=== PATIENT | male | born 1955 | race Caucasian/White ===

== ENCOUNTER 2020-02-03 13:06 | Outpatient (CLI) | payer OTHER, SELFPAY ==
[2020-02-03 13:25] LABS: Basophils Percent Auto 0.3 % (0.2-1.2); Eosinophils Absolute Auto 0.2 K/mm3 (0-0.3); Eosinophils Percent Auto 1.5 % (0-4.4); Hematocrit 51.1 % (42.0-52.0); Hemoglobin 16.5 g/dL (14.0-18.0); Immature Granulocyte Absolute 0.05 K/mm3 (0.00-0.031); Immature Granulocyte Percent A 0.5 % (0-0.5); Lymphocytes Absolute Auto 2.03 K/mm3 (0.9-3.2); Lymphocytes Percent Auto 20.8 % (18.3-44.2); Mean Corpuscular HGB Conc 32.3 g/dl (32-36); Mean Corpuscular Hemoglobin 26.9 pg (26-34); Mean Corpuscular Volume 83.4 fl (80-100); Monocytes Percent Auto 10.6 % (2.6-8.5); Neutrophils Absolute Auto 6.5 K/mm3 (1.3-6.7); Neutrophils Percent Auto 66.3 % (45.5-73.1); Platelet Count Result 184 k/mm3 (150-375); Red Blood Count 6.13 M/mm3 (4.6-6.20); Red Cell Distribution Width 14.1 % (11.5-14.5); White Blood Count 9.8 K/mm3 (4.5-10.0)
[2020-02-03 13:29] LABS: Blood Urea Nitrogen 18 mg/dL (8-26); Carbon Dioxide 28 mmol/L (22-30); Chloride 100 mmol/L (98-109); Estimated Glomerular Filt Rate > 60; Glucose 90 mg/dL (70-105); Potassium 3.9 mmol/L (3.5-4.9); Sodium 139 mmol/L (138-146)
== END 2020-02-03 13:07 | disposition home or self-care (01) ==
PROVIDERS: PCP Family Medicine; Visit Provider Internal Medicine Hematology & Oncology
DX: D75.1 Secondary polycythemia (principal)
CPT/HCPCS: 36415; 80048; 85025

== ENCOUNTER 2021-12-01 10:27 | Outpatient (CLI) | payer MEDICARE, SELFPAY ==
[2021-12-01 10:57] LABS: Basophils Percent Auto 0.4 % (0.2-1.2); Eosinophils Absolute Auto 0.2 K/mm3 (0-0.3); Eosinophils Percent Auto 2.1 % (0-4.4); Hematocrit 51.4 % (42.0-52.0); Immature Granulocyte Absolute 0.03 K/mm3 (0.00-0.031); Immature Granulocyte Percent A 0.4 % (0-0.5); Lymphocytes Absolute Auto 1.97 K/mm3 (0.9-3.2); Lymphocytes Percent Auto 25.8 % (18.3-44.2); Mean Corpuscular HGB Conc 33.1 g/dl (32-36); Mean Corpuscular Hemoglobin 29.4 pg (26-34); Mean Corpuscular Volume 88.9 fl (80-100); Mean Platelet Volume 10.5 fl (7.4-10.4); Monocytes Absolute Auto 0.8 K/mm3 (0.1-0.6); Neutrophils Absolute Auto 4.6 K/mm3 (1.3-6.7); Neutrophils Percent Auto 60.3 % (45.5-73.1); Platelet Count Result 149 k/mm3 (150-375); Red Blood Count 5.78 M/mm3 (4.6-6.20); White Blood Count 7.6 K/mm3 (4.5-10.0)
[2021-12-01 11:01] LABS: Blood Urea Nitrogen 17 mg/dL (8-26); Carbon Dioxide 29 mmol/L (22-30); Chloride 101 mmol/L (98-109); Estimated Glomerular Filt Rate > 60; Glucose 105 mg/dL (70-105); Ionized Calcium (POC) 1.21 mmol/L (1.11-1.31); Potassium 4.7 mmol/L (3.5-4.9); Sodium 140 mmol/L (138-146)
== END 2021-12-01 10:28 | disposition home or self-care (01) ==
LOC: ANHLAB 10:29
PROVIDERS: PCP Family Medicine; Visit Provider Internal Medicine Hematology & Oncology
DX: D75.1 Secondary polycythemia (principal)
CPT/HCPCS: 36415; 80047; 85025

== ENCOUNTER 2022-10-01 12:31 | Outpatient (CLI) | payer MEDICARE, SELFPAY ==
--- NOTE | ~2022-10-01 | MR_ITS ---
EXAMINATION: MR shoulder LT wo/w con DATE: 10/01/2022 13:59 INDICATION: Left scapular mass. TECHNIQUE: Magnetic resonance imaging (MRI) of the left shoulder was performed without and with 20 mL MultiHance intravenous contrast. COMPARISON: None. FINDINGS: At the posterior aspect of the left scapula, there is a 9.5 x 6.2 x 5.9 cm mass that is predominantly fat. There are streaky areas of increased T1-weighted signal intensity within the mass. No contrast enhancement. There are spikes of calcification extending from the posterior surface of the scapular c ortex into the mass. There is no continuity with the scapular medullary space. IMPRESSION: 1. 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 Reviewed, dictated and finalized at location A. IMPRESSION: 1. 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
== END 2022-10-01 12:32 | disposition home or self-care (01) ==
PROVIDERS: PCP Family Medicine; Visit Provider Physician Assistant
DX: R22.32 Localized swelling, mass and lump, left upper limb (principal)
CPT/HCPCS: 36415; 73223; 80047; 80053; 82465; 84153; 85025; A9577; G0103

== ENCOUNTER 2023-10-18 10:52 | Outpatient (CLI) | payer MEDICARE, SELFPAY ==
[2023-10-18 11:20] LABS: Basophils Percent Auto 0.4 % (0.2-1.2); Eosinophils Absolute Auto 0.2 K/mm3 (0-0.3); Eosinophils Percent Auto 2.4 % (0-4.4); Hematocrit 48.5 % (42.0-52.0); Hemoglobin 16.5 g/dL (14.0-18.0); Immature Granulocyte Absolute 0.05 K/mm3 (0.00-0.031); Immature Granulocyte Percent A 0.7 % (0-0.5); Immature Platelet Fraction Pct 5.4 % (0.9-11.2); Lymphocytes Absolute Auto 1.52 K/mm3 (0.9-3.2); Lymphocytes Percent Auto 22.6 % (18.3-44.2); Mean Corpuscular Hemoglobin 29.2 pg (26-34); Mean Corpuscular Volume 85.8 fl (80-100); Mean Platelet Volume 10.1 fl (7.4-10.4); Monocytes Absolute Auto 0.8 K/mm3 (0.1-0.6); Monocytes Percent Auto 11.2 % (2.6-8.5); Neutrophils Absolute Auto 4.2 K/mm3 (1.3-6.7); Neutrophils Percent Auto 62.7 % (45.5-73.1); Platelet Count Result 149 k/mm3 (150-375); Red Blood Count 5.65 M/mm3 (4.6-6.20); Red Cell Distribution Width 13.3 % (11.5-14.5); White Blood Count 6.7 K/mm3 (4.5-10.0)
[2023-10-18 11:21] LABS: Blood Urea Nitrogen 18 mg/dL (8-26); Carbon Dioxide 27 mmol/L (22-30); Chloride 100 mmol/L (98-109); Estimated Glomerular Filt Rate > 60; Glucose 112 mg/dL (70-105); Ionized Calcium (POC) 1.21 mmol/L (1.11-1.31); Potassium 4.3 mmol/L (3.5-4.9); Sodium 139 mmol/L (138-146)
[2023-10-18 12:09] LABS: Alanine Aminotransferase 40 U/L (6-50); Albumin Level 4.2 g/dL (3.5-5.1); Alkaline Phosphatase 100 U/L (38-126); Anion Gap 3 mmol/L (4-12); Aspartate Amino Transferase 39 U/L (17-59); Bilirubin,Total 0.5 mg/dL (0.2-1.3); Blood Urea Nitrogen 19 mg/dL (9-20); Calcium 9.2 mg/dL (8.4-10.2); Carbon Dioxide 31 mmol/L (22-30); Chloride 102 mmol/L (98-107); Estimated Glomerular Filt Rate > 60; Glucose 109 mg/dL (65-110); Potassium 4.4 mmol/L (3.4-5.0); Sodium 136 mmol/L (137-145)
== END 2023-10-18 10:53 | disposition home or self-care (01) ==
LOC: ANHLAB 10:53
PROVIDERS: PCP Family Medicine; Visit Provider Internal Medicine Hematology & Oncology
DX: D75.1 Secondary polycythemia (principal)
CPT/HCPCS: 36415; 80047; 80053; 85025; 85055

== ENCOUNTER 2024-10-29 12:42 | Outpatient (CLI) | payer MEDICARE, SELFPAY ==
--- OUTSIDE RECORDS SUMMARY | 2024-10-29 12:48 | XMS_ITS | Clinical Summary ---
Author Organization [facility] [address] Address [address] [place] [address] Care Team Providers Care Quiller Runner Name Role Phone Hien Faustin MD Primary Care Provider [phone] Danna Kim MD Unavailable [phone] Allergies Active Allergy Reactions Criticality Noted Date Comments Codeine Headache Low 10/24/2023 Medications aspirin 81 mg chewable tablet Take 1 tablet (81 mg total) by mouth daily Active nitroglycerin (NITROSTAT) 0.[address] 1 tablet (0.4 mg total) under the tongue every 5 (five) minutes as needed for chest pain Active quinapriL (ACCUPRIL) 40 mg tablet Take 1 tablet (40 mg total) by mouth 2 (two) times a day Active rosuvastatin (CRESTOR) 40 mg tablet Take 1 tablet (40 mg total) by mouth nightly Active metoprolol XL (TOPROL-XL) 100 mg 24 hr tablet Take 1 tablet (100 mg total) by mouth daily Active hydroCHLOROthia zide (HYDRODIURIL) 50 mg tablet Take 1 tablet (50 mg total) by mouth daily Active ezetimibe (ZETIA) 10 mg tablet Take 1 tablet (10 mg total) by mouth daily 4 Active amLODIPine (NORVASC) 10 mg tablet Take 1 tablet (10 mg total) by mouth daily 30 tablet 4 Active ticagrelor (BRILINTA) 90 mg tabletIndicatio ns:cardiovascul ar disease Take 1 tablet (90 mg total) by mouth 2 (two) times a day 60 tablet 11 4 Active brimonidine (ALPHAGAN) 0.2 % ophthalmic solution Administer 1 drop into both eyes 3 (three) times a day 5 mL 5 Active cyclopentolate (CYCLOGYL) 1 % ophthalmic solution Administer 1 drop into the left eye 2 (two) times a day 10 mL 5 Active prednisoLONE acetate (PRED FORTE) 1 % ophthalmic suspension Administer 1 drop into the left eye 2 (two) times a day 5 mL 5 Active dorzolamide-bj oloL (COSOPT) 22.3-6.8 mg/mL ophthalmic solution Administer 1 drop into both eyes 2 (two) times a day 10 mL 5 Active latanoprost (XALATAN) 0.005 % ophthalmic solution Administer 1 drop into both eyes nightly 2.5 mL 5 Active Active Problems Problem Noted Date Diagnosed Date 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 NSTEMI (non-ST elevated myocardial infarction) 0 10/24/2023 Primary hypertension 10/24/2023 Hyperlipidemia 10/24/2023 Type 2 diabetes mellitus wit hout complication, without long-term current use of insulin 10/24/2023 Class 1 obesity due to exces s calories without serious comorbidity with body mass index (BMI) of 32.0 to 32.9 in adult 10/24/2023 NSTEMI (non-ST elevated myocardial infarction) 0 12/07/2021 Other secondary thrombocytopenia 11/05/2018 Encounters Date Type Department Care Team Description 10/27/2024 3:14 PM CDT - 10/27/2024 8:14 PM CDT Emergency [facility] [address] [place] [address] Maeve Fuentes MD Traumatic iritis (Primary Dx); Acute pain of right knee; Fall from ladder, initial encounter; Effusion, right knee; Traumatic hemarthrosis of right knee; Open-angle glaucoma of both eyes, unspecified glaucoma stage, unspecified open-angle glaucoma type Discharge Disposition: Discharge to home or self care 10/27/2024 Telephone Ophthalmology Anusha Castaneda MD 10/27/2024 Ophth Exam Ophthalmology Anusha Castaneda MD from Last 3 Months Surgical History Surgery Date Site/Laterality Comments CARDIAC CATHETERIZATION CORONARY ANGIOPLASTY Medical History Medical History Date Comments Hypertension Hyperlipidemia Coronary artery disease Family History Medical History Relation Name Comments Hyperlipidemia Mother Relation Name Status Comments Mother Social History Tobacco Use Types Packs/Day Years Used Date Smoking Tobacco: Never Smokeless Tobacco: Never [facility] Utilities Answer Date Recorded In the past 12 months has [employer] gas, oil, or water [employer] threatened to shut off services in your home? No 10/24/2023 Social Connection and Isolation Panel Answer Date Recorded In a typical week, how many times do you talk on the phone with family, friends, or neighbors? More than three times a week 10/24/2023 How often do you get togethe r with friends or relatives? More than three times a week 10/24/2023 How often do you attend chur ch or jewish services? 1 to 4 times per year 10/24/2023 Do you belong to any clubs o r organizations such as taoist groups, unions, fraternal or athletic groups, or school groups? No 10/24/2023 How often do you attend meet ings of the clubs or organizations you belong to? Never 10/24/2023 Are you , , di vorced, , never , or living with a partner? 10/24/2023 AUDIT-C Answer Date Recorded Q1: How often do you have a drink containing alc ohol? Monthly or less 10/25/2023 Q2: How many drinks containi ng alcohol do you have on a typical day when you are drinking? 1 or 2 10/25/2023 Q3: How often do you have si x or more drinks on one occasion? Never 10/25/2023 Overall Financial Resource Strain (CARDIA) Answe r Date Recorded How hard is it for you to pa y for the very basics like food, housing, medical care, and heating? Not hard at all 10/24/2023 Hunger Vital Sign Answer Date Recorded Within the past 12 months, y ou worried that your food would run out before you got the money to buy more. Never true 10/24/19 24 Within the past 12 months, t he food you bought just didn't last and you didn't have money to get more. Never true 10/24/2023 PRAPARE - Transportation Answer Date Re corded In the past 12 months, has l ack of transportation kept you from medical appointments or from getting medications? No 10/2023 In the past 12 months, has l ack of transportation kept you from meetings, work, or from getting things needed for daily living? No 10/24/2023 Housing Stability Vital Sign Answer Herman e Recorded In the last 12 months, was t here a time when you were not able to pay the mortgage or rent on time? No 10/24/2023 In the past 12 months, how m any times have you moved where you were living? 0 10/24/2023 At any time in the past 12 m [facility], were you homeless or living in a custodial (including now)? No 10/24/2023 Personal Safety Answer Date Recorded Have you ever been in or are you currently in a harmful physical or emotional relationship or is someone making you feel afraid or unsafe? Denies 10/27/2024 Sex and Gender Information Value Date Recorded Sex Assigned at Not on file Legal Sex Male 10:13 AM [employer] Gender Identity Not on file Sexual Orientation Not on file Obstetrics History Last Filed Vital Signs Vital Sign Reading Time Taken Comments Blood Pressure 140/105 10/27/2024 5:45 PM CDT Pulse 85 10/27/2024 5:45 PM CDT Temperature 36.7 C (98 F) 10/27/2024 3:27 PM CDT Respiratory Rate 16 10/27/2024 5:15 PM CDT Oxygen Saturation 96% 10/27/2024 5:15 PM CDT Inhaled Oxygen Concentration - - Weight 106.6 kg (235 lb) 10/27/2024 3:27 PM CDT Height 182.9 cm (6') 10/27/2024 3:27 PM CDT Body Mass Index 31.87 10/27/2024 3:27 PM CDT Plan of Treatment Health Maintenance Due Date Last Done Comments Albumin Creatinine Ratio, Urine 1955 Colon Cancer Screening-Colonoscopy 1955 Depression Screening 1955 Hepatitis C Screening 1955 Prostate Cancer Screening-PSA 1955 Foot Exam 1955 Hepatitis B Screening 11/24/1973 Pneumococcal vaccine 65+ (1 of 2 - PCV) 11/24/1974 Zoster Vaccine (1 of 2) 11/24/2005 Abdominal Aortic Aneurysm (A AA) Screen 11/24/2020 04/19/2017 Well Visit 65+ 11/24/2020 Hemoglobin A1C 04/25/2024 10/24/2023 Lipid Panel 10/23/2024 10/24/2023, 10/23/2023 Fall Risk Assessment 10/25/2024 10/26/2023 Influenza Vaccine (#1) 2024 Dilated Eye Exam 10/27/2025 10/27/2024 eGFR 10/27/2025 10/27/2024, 10/16, 10/25/2023, Additional history exists DTaP/Tdap/Td Vaccine (3 - Td or Tdap) 02/03/2030 02/04/2020, 03/19/2007 Medical Devices Implanted Type Area Client Integration Manager Device Identifier Shelf Expiration Date Model / Serial / Lot Medtronic Card Vasc Surgery 3.5 X 12mm [place] [employer] Coronary Stent [id number] - [id number] Implanted:Qty: 1 on 10/25/2023 by David Marrero MD at [facility] Med[employer]onic Card Vasc Surgery 12/18/2025 [id number] / / [id number] Procedures Procedure Name Priority Date/Time Associated Diagnosis Comments EGFR STAT 10/27/2024 3:31 PM CDT DIFFERENTIAL AUTO STAT 10/27/2024 3:3 1 PM CDT COMPREHENSIVE METABOLIC PANEL STAT 10/27/2024 3:31 PM CDT CBC WITH AUTO DIFFERENTIAL STAT 10/27/2024 3:31 PM CDT HEMOGLOBIN A1C Routine 10/24/2023 4:17 AM CDT LIPID PANEL Routine 10/24/2023 4:17 AM CDT from Last 3 Months or Most Recently Relevant to Health Maintenance Results * eGFR (10/27/2024 3:31 PM CDT) Pathologist [facility] eGFR >90 >=60 mL/min/1. 73 m2 Comment: Interpretive Data Reference Interval Normal >/= 90 mL/min/1.73m2 Mildly decreased* 60 - 89 mL/min/1.73m2 Mildly to moderately decreased 45 - 59 mL/min/1.73m2 Moderately to severely decreased 30 - 44 mL/min/1.73m2 Severely decreased 15 - 29 mL/min/1.73m2 Kidney Failure < 15 mL/min/1.73m2 *Relative to young adult level Estimated glomerular filtration rate is determined by the 2020 CKD-EPI equation recommended by the National Kidney Foundation (A Unifying Approach to GFR Estimation: Recommendations of the NKF-ASK Task Force on Reassessing the Inclusion of Race in Diagnosing Kidney Disease, JASN 2020). The CKD-EPI equation should not be used for patients with unstable renal function and has not been validated in children and those over 70. Current interpretive data was last reviewed 2021. Blood 10/27/2024 3:31 PM CDT 10/27/2024 3:56 PM CDT Juan Jamison MD LAB BLOOD ORDERABLES Fi nal Result [facility] Department [place] [address] * (ABNORMAL) Differential, auto (10/27/2024 3:31 PM CDT) Pathologist [facility] Neutrophil abs 11.85(H) 1.50 - 6.50 K/cumm Imm gran abs 0.09 0.00 - 0.10 K/cumm [facility] Lymphocyte abs 1.49 0.80 - 3.30 K/cumm [facility] Monocyte abs 1.03(H) 0.20 - 0.80 K/cumm [facility] Eosinophil abs 0.03 0.00 - 0.50 K/cumm [facility] Basophil abs 0.03 0.00 - 0.10 K/cumm [facility] Neutrophil pct 81.6 % [facility] Comment: Interpretive Data Percent cell count reference ranges are not reported, since discordance with absolute values may lead to misinterpretation of CBC data. Current Interpretive Data was last revised on 2017. Imm gran pct 0.6 % [facility] Comment: Interpretive Data Percent cell count reference ranges are not reported, since discordance with absolute values may lead to misinterpretation of CBC data. Current Interpretive Data was last revised on 2017. Lymphocyte pct 10.3 % [facility] Comment: Interpretive Data Percent cell count reference ranges are not reported, since discordance with absolute values may lead to misinterpretation of CBC data. Current Interpretive Data was last revised on 2017. Monocyte pct 7.1 % [facility] Comment: Interpretive Data Percent cell count reference ranges are not reported, since discordance with absolute values may lead to misinterpretation of CBC data. Current Interpretive Data was last revised on 2017. Eosinophil pct 0.2 % [facility] Comment: Interpretive Data Percent cell count reference ranges are not reported, since discordance with absolute values may lead to misinterpretation of CBC data. Current Interpretive Data was last revised on 2017. Basophil pct 0.2 % [facility] Comment: Interpretive Data Percent cell count reference ranges are not reported, since discordance with absolute values may lead to misinterpretation of CBC data. Current Interpretive Data was last revised on 2017. Blood 10/27/2024 3:31 PM CDT 10/27/2024 3:56 PM CDT us Juan Jamison MD LAB BLOOD ORDERABLES Fi nal Result [facility] [place] [address] * (ABNORMAL) CBC with auto differential (10/27/2024 3:31 PM CDT) WBC 14.52(H) 3.80 - 9.90 K/cumm Hgb 14.4 13.0 - 17.5 g/dL [facility] Hct 42.8 38.9 - 50.3 % [facility] Plt 172 150 - 400 K/cumm [facility] MPV 10.6 9.1 - 12.3 fL [facility] RBC 5.01 4.30 - 5.80 M/cumm [facility] MCV 85.4 81.3 - 96.4 fL [facility] MCH 28.7 27.1 - 33.3 pg [facility] MCHC 33.6 32.3 - 35.7 g/dL [facility] RDW CV 13.2 11.1 - 14.9 % [facility] RDW SD 41.1 35.7 - 48.1 fL [facility] NRBC abs 0.00 0.00 - 0.01 K/cumm [facility] Blood 10/27/2024 3:31 PM CDT 10/27/2024 3:56 PM CDT us Juan Jamison MD LAB BLOOD ORDERABLES [facility] Result [facility] Department [place] [address] * Comprehensive metabolic panel (10/27/2024 3:31 PM CDT) Sodium 139 135 - 145 mmol/L Potassium, pl 3.8 3.3 - 4.9 mmol/L [facility] Chloride 101 97 - 110 mmol/L [facility] CO2 25 22 - 32 mmol/L [facility] Anion gap 13 2 - 15 mmol/L [facility] BUN 21 6 - 25 mg/dL [facility] Creatinine 0.81 0.80 - 1.30 mg/dL [facility] Glucose 106 70 - 199 mg/dL [facility] Comment: Interpretive Data Fasting glucose >/= 126 mg/dl is diagnostic for diabetes. Fasting is defined as no caloric intake for at least 8 hours. Fasting glucose between 100 mg/dl to 125 mg/dl is diagnostic of prediabetes. In a patient with classic symptoms of hyperglycemia or hyperglycemic crisis, a random glucose >/= 200 mg/dl is diagnostic for diabetes. In the absence of unequivocal hyperglycemia, results should be confirmed by repeat testing. The classification and Diagnosis of Diabetes Diabetes Care 202; 46: S19-S40. Current interpretive data was last revised 2022. Calcium 9.3 8.5 - 10.3 mg/dL [facility] Bilirubin, total 0.5 0.1 - 1.2 mg/dL [facility] Protein, pl 7.2 6.5 - 8.5 g/dL [facility] Albumin 4.1 3.5 - 5.0 g/dL [facility] Alk phos 79 40 - 130 Units/L [facility] ALT 49 7 - 55 Units/L [facility] AST 49 10 - 50 Units/L [facility] Blood 10/27/2024 3:31 PM CDT 10/27/2024 3:56 PM CDT us Juan Jamison MD LAB BLOOD ORDERABLES Fi nal Result Performing Organization Address City/[facility] [address]/ZIP Co de Phone Number [facility] Department [place] [address] * (ABNORMAL) Hemoglobin A1c (10/24/2023 4:17 AM CDT) Hgb A1C 6.8(H) 4.0 - 5.6 % Estimated Average Glucose 148 mg/dL [facility] Comment: The ADA recommends reporting an estimated Average Glucose (eAG) with all Hemoglobin A1c results using the equation derived from a study of 507 normal and diabetic adults. Minority populations were underrepresented and children were not included. (Diabetes Care 31:4835-7092, 2008). The eAG is not equivalent to a fasting glucose. Blood 10/24/2023 4:17 AM CDT 10/24/2023 4:20 AM CDT us Alana Madera MD LAB BLOOD ORDERABLES Final Result [facility] [address] [facility] Department [place] [address] * (ABNORMAL) Lipid panel (10/24/2023 4:17 AM CDT) Cholesterol 205(H) 30 - 199 mg/dL Comment: Interpretive Data Ages < or = 19 years Acceptable: <170 mg/dL Borderline high: 170-199 mg/dL High: >or= 200 mg/dL Ages > or = 20 years Desirable: <200 mg/dL Borderline high: 200-239 mg/dL High: >or= 240 mg/dL Literature References: 1. Expert Panel on Integrated Guidelines for Cardiovascular Health and Risk Reduction in Children and Adolescents. Pediatrics 2011;128:S213 2. NCEP Expert Panel. Circulation 2004;110:227 Current Interpretive Data was last revised on 2017. Triglycerides 358(H) <=149 mg/dL [facility] Comment: Interpretive Data Ages < or = 9 years Acceptable: <75 mg/dL Borderline high: 75-99 mg/dL High: >or= 100 mg/dL Ages 10 to 20 years Acceptable: <90 mg/dL Borderline high: 90-129 mg/dL High: >or= 130 mg/dL Ages > or = 20 years Desirable: <150 mg/dL Borderline high: 150-199 mg/dL High: 200-499 mg/dL Very high: >or= 499 mg/dL Literature References: 1. Expert Panel on Integrated Guidelines for Cardiovascular Health and Risk Reduction in Children and Adolescents. Pediatrics 2011;128:S213 2. NCEP Expert Panel. Circulation 2003;110:227 Current Interpretive Data was last revised on 2017. HDL 36(L) >=40 mg/dL [facility] Comment: Interpretive Data Ages < or = 19 years Acceptable: >45 mg/dL Borderline low: 40-45 mg/dL Low: <40 mg/dL Ages > or = 20 years Desirable: >or= 60 mg/dL Low: <40 mg/dL Literature References: 1. Expert Panel on Integrated Guidelines for Cardiovascular Health and Risk Reduction in Children and Adolescents. Pediatrics 2011;128:S213 2. NCEP Expert Panel. Circulation 2004;110:227 Current Interpretive Data was last revised on 2017. LDL, calculated 97 <=129 mg/dL [facility] Comment: Interpretive Data Ages < or = 19 years Acceptable: <110 mg/dL Borderline high: 110-129 mg/dL High: >or= 130 mg/dL Ages > or = 20 years Optimal: <100 mg/dL Near optimal: 100-129 mg/dL Borderline high: 130-159 mg/dL High: >160 mg/dL Literature References: 1. Expert Panel on Integrated Guidelines for Cardiovascular Health and Risk Reduction in Children and Adolescents. Pediatrics 2011;128:S213 2. NCEP Expert Panel. Circulation 2004;110:227 Current Interpretive Data was last revised on 2017. Non-HDL Cholesterol 169 mg/dL [facility] Comment: Interpretive Data Ages < or = 19 years Acceptable: <120 mg/dL Borderline high: 120-144 mg/dL High: >145 mg/dL Ages > or = 20 years When triglycerides are >200 mg/dL, Non-HDL cholesterol is a secondary target of therapy with treatment goals that are 30 mg/dL greater than the LDL cholesterol target. Literature References: 1. Expert Panel on Integrated Guidelines for Cardiovascular Health and Risk Reduction in Children and Adolescents. Pediatrics 2011;128:S213 2. NCEP Expert Panel. Circulation 2004;110:227 Current Interpretive Data was last revised on 2017. Chol/HDL ratio 6 [facility] Blood 10/24/2023 4:17 AM CDT 10/24/2023 4:20 AM CDT Alana Madera MD LAB BLOOD ORDERABLES Final Result [facility] [address] [facility] Department [place] [address] from Last 3 Months or Most Recently Relevant to Health Maintenance Insurance MEDICARE UHC MEDICARE ADVANTAGE [facility] MEDICARE ADVANTAGE Advance Directives For more information, please contact: [phone] * Full Code (Latest Code Status on File) Date Activated Date Inactivated Comments 10/25/2023 10:49 AM 10/26/2023 5:48 PM * Full Code Date Activated Date Inactivated Comments 10/24/2023 12:45 AM 10/25/2023 10:49 AM Care Teams Quiller Runner Relationship Specialty Start Date End Date Hien Faustin MD PCP - General Family Medicine 11/22/21 Danna Kim MD Family Practice 11/22/21
--- OUTSIDE RECORDS SUMMARY | 2024-10-29 12:48 | XMS_ITS | Encounter Summary ---
Author Organization [facility] Healthcare Address [address] [facility] [place] [address] Care Team Providers Care Greenhouse Technician Name Role Phone Hien Faustin MD Primary Care Provider [phone] Danna Kim MD Unavailable [phone] Reason for Visit * Reason Comments Fall Encounter Details Date Type Department Care Team (Late st Contact Info) Description 10/27/2024 3:14 PM CDT - 10/27/2024 8:14 PM CDT Emergency [facility] Emergency Department [address] [place] [id number] Maeve Fuentes MD [address] [place] [address] Traumatic iritis (Primary Dx); Acute pain of right knee; Fall from ladder, initial encounter; Effusion, right knee; Traumatic hemarthrosis of right knee; Open-angle glaucoma of both eyes, unspecified glaucoma stage, unspecified open-angle glaucoma type Discharge Disposition: Discharge to home or self care Social History Tobacco Use Types Packs/Day Years Used Date Smoking Tobacco: Never Smokeless Tobacco: Never C Utilities Answer Date Recorded In the past 12 months has [employer], gas, oil, or water company threatened to shut off services in your [...] often do you attend chur ch or uatsdin services? 1 to 4 times per year 10/24/2023 Do you belong to any clubs o r organizations such as mormonism groups, unions, fraternal or athletic groups, or [...] any time in the past [address] [facility], were you homeless or living in a [facility] (including now)? No 10/24/2023 Personal Safety Answer Date Recorded Have you ever been in or are you currently in a harmful physical or emotional relationship or is someone making you feel afraid or unsafe? Denies 10/27/2024 Sex and Gender Information Value Date Recorded Sex Assigned at Not on file Legal Sex Male 10:13 AM [employer] Gender Identity Not on file Sexual Orientation Not on file documented as of this encounter Last Filed Vital Signs Vital Sign Reading [...] Mass Index 31.87 10/27/2024 3:27 PM CDT documented in this encounter Discharge Instructions * Discharge Instructions* Juan Jamison MD - 10/27/2024 6:27 PM CDT You were seen in the emergency department of [facility] for left eye blurry vision and right knee pain after falling from an onto a ladder. Outside hospital imaging not reveal any fractures. Your right knee pain is likely due to bleeding into the joint which should resolve over the nextseveral days. You were evaluated by the ophthalmology team. The trauma to your face was caused irrit ation to your iris. The pressures inside your eyes are also elevated which is likely due to glaucoma. You are being given a number of eyedrops listed below. - Start Prednisolone forte 1-2 drops twice per day in the LEFT EYE ONLY - Start Cyclopentolate 1-2 drips twice per day in the LEFT EYE ONLY - Start Timolol drops twice per day 1 drop in both eyes. - Start Dorzolamide one drop in each eye twice per day - Start brimonidine one drop in each eye twice perday. - Start latanoprost one drop every night in each eye - Wait 3-5 minutes between each drop before administering next drop When you sleep it is recommend you elevate you head. Avoid heavy lifting or straining. The ophthalmology clinic, [facility] ([facility]), would like to follow up with the you in 1 week. Call the [facility] ([facility]) clinic at [phone] if you experience any new vision changes, new flashes/floaters, eye pain, diplopia, or any other concerning ocular changes. Please take Tylenol (acetaminophen) 1000 mg up to every 6 hours as needed for the next 3 days, and while you are having a significant amount of pain. If needed, you can also take ibuprofen 600 mg every 6 hours, or naproxen (Aleve) as indicated on the label, in addition to the acetaminophen as needed. It is okay to use heat, cold, and topical therapies like lidocaine, icy hot, or other [id number] gels where you are having pain. If you use heat or cold, be sure to put a washcloth or other fabric between the hot/cold pack and your skin to prevent ya. Return to an emergency department if you have worsening vision loss, severe sudden onset headache, if your right knee pain does not resolve, he will become unable to ambulate with crutches, or any other distressing symptoms. documented in this encounter Medications at Time of Discharge aspirin 81 mg chewable tablet Take 1 tablet (81 mg total) by mouth daily brimonidine (ALPHAGAN) 0.2 % ophthalmic solution Administer 1 drop into both eyes 3 (three) times a day 5 mL 10/27/2024 cyclopentolate (CYCLOGYL) 1 % ophthalmic solution Administer 1 drop into the left eye 2 (two) times a day 10 mL 10/27/2024 dorzolamide-jazzy loL (COSOPT) 22.3-6.8 mg/mL ophthalmic solution Administer 1 drop into both eyes 2 (two) times a day 10 mL 10/27/2024 ezetimibe (ZETIA) 10 mg tablet Take 1 tablet (10 mg total) by mouth daily 09/03/2023 hydroCHLOROthiaz brian (HYDRODIURIL) 50 mg tablet Take 1 tablet (50 mg total) by mouth daily latanoprost (XALATAN) 0.005 % ophthalmic solution Administer 1 drop into both eyes nightly 2.5 mL 10/27/2024 metoprolol XL (TOPROL-XL) 100 mg 24 hr tablet Take 1 tablet (100 mg total) by mouth daily nitroglycerin (NITROSTAT) 0.[address] 1 tablet (0.4 mg total) under the tongue every 5 (five) minutes as needed for chest pain prednisoLONE acetate (PRED FORTE) 1 % ophthalmic suspension Administer 1 drop into the left eye 2 (two) times a day 5 mL 10/27/2024 quinapriL (ACCUPRIL) 40 mg tablet Take 1 tablet (40 mg total) by mouth 2 (two) times a day rosuvastatin (CRESTOR) 40 mg tablet Take 1 tablet (40 mg total) by mouth nightly documented as of this encounter Ordered Prescriptions Prescription Sig Dispense Quantity Refills Last Filled Start Date End Date latanoprost (XALATAN) 0.005 % ophthalmic solution Administer 1 drop into both eyes nightly 2.5 mL 10/27/2024 dorzolamide-timolo L (COSOPT) 22.3-6.8 mg/mL ophthalmic solution Administer 1 drop into both eyes 2 (two) times a day 10 mL 10/27/2024 prednisoLONE acetate (PRED FORTE) 1 % ophthalmic suspension Administer 1 drop into the left eye 2 (two) times a day 5 mL 10/27/2024 cyclopentolate (CYCLOGYL) 1 % ophthalmic solution Administer 1 drop into the left eye 2 (two) times a day 10 mL 10/27/2024 brimonidine (ALPHAGAN) 0.2 % ophthalmic solution Administer 1 drop into both eyes 3 (three) times a day 5 mL 10/27/2024 documented in this encounter Discharge Disposition Disposition Code Departure Means Destination Comment s Discharge to home or self care documented in this encounter Consult Notes * Anusha Castaneda MD - 10/27/2024 4:51 PM CDTAssociated Order(s): IP CONSULT TO OPHTHALMOLOGY OPHTHALMOLOGY - NEW CONSULT REPORT Reason for Consult: trauma to L face, blurry vision, conjuctival hemorrhage, L pupil fixed and dilated Admit Date: 10/27/2024 3:14 PM Admit Diagnosis: FALL, LEFT EYE INJURY, RT KNEE SWOLLEN History of Present Illness This is a 68 y.o. male with PMHx of HTN, HLD, NSTEMI, T2DM, Obesity and OHx of ?retinal tear s/p laser who presents after mechanical fall. Ophthalmology is consulted for c/f nonreactive pupil. Patient reports he fell off a ladder today and that it whacked him in the left eye. Reports some initial left eye pain and blurry vision that looked like a haze, which has been improving. He also reports his left eye was crossed in for about 30 seconds which has resolved spontaneously. Having mild photophobia in the left eye with bright lights. Otherwise denies flashes/floaters, eye pain, redness, diplopia. Ocular history: Patient mentions needing a laser in his left eye almost one year ago because something lifted off the back and caused some bleeding. Says the words retinal tear sounds familiar, denies retinal detachment. Past ocular surgeries: Laser as above. Current ocular medications: none Family history of ocular problems: none Review of Systems: Unless noted in HPI all other systems negative. Past Ocular History: see HPI Past Medical History: Diagnosis Date Coronary artery disease Hyperlipidemia Hypertension Past Surgical History: Procedure Laterality Date CARDIAC CATHETERIZATION CORONARY ANGIOPLASTY Family History Problem Relation Age of Onset Hyperlipidemia Mother Social History Tobacco Use Smoking status: Never Smokeless tobacco: Never Substance and Sexual Activity Drug use: Not Currently Sexual activity: Defer Alcohol Use: Not At Risk (10/25/2023) AUDIT-C Frequency of Alcohol Consumption: Monthly or less Average Number of Drinks: 1 or 2 Frequency of Binge Drinking: Never Recent Concern: Alcohol Use - Alcohol Misuse (10/24/2023) AUDIT-C Frequency of Alcohol Consumption: 2-3 times a week Average Number of Drinks: 1 or 2 Frequency of Binge Drinking: Less than monthly Current eye medications: see HPI Current Facility-Administered Medications Medication Dose Route Frequency Provider Last Rate Last Admin acetaminophen (TYLENOL) tablet 1,000 mg 1,000 mg oral Once Juan Jamison MD oxyCODONE (ROXICODONE) tablet 5 mg 5 mg oral Once Juan Jamison MD Current Outpatient Medications Medication Sig Dispense Refill amLODIPine (NORVASC) 10 mg tablet Take 1 tablet (10 mg total) by mouth daily 30 tablet 0 aspirin 81 mg chewable tablet Take 1 tablet (81 mg total) by mouth daily ezetimibe (ZETIA) 10 mg tablet Take 1 tablet (10 mg total) by mouth daily hydroCHLOROthiazide (HYDRODIURIL) 50 mg tablet Take 1 tablet (50 mg total) by mouth daily metoprolol XL (TOPROL-XL) 100 mg 24 hr tablet Take 1 tablet (100 mg total) by mouth daily nitroglycerin (NITROSTAT) 0.[address] 1 tablet (0.4 mg total) under the tongue every 5 (five) minutes as needed for chest pain quinapriL (ACCUPRIL) 40 mg tablet Take 1 tablet (40 mg total) by mouth 2 (two) times a day rosuvastatin (CRESTOR) 40 mg tablet Take 1 tablet (40 mg total) by mouth nightly ticagrelor (BRILINTA) 90 mg tablet Take 1 tablet (90 mg total) by mouth 2 (two) times a day 60 tablet 11 Physical Exam: Vitals: 10/27/24 1745 BP: (!) 140/105 Pulse: 85 Resp: Temp: SpO2: Base Eye Exam Visual Acuity (Snellen - Linear) Right Left Near cc 20/20 20/20 Tonometry (Tonopen, 4:47 PM) Right Left Pressure 34,35,30 46,50,48 Pupils Dark Light Shape React APD Right 6 4 Round Brisk None Left 7 6.5 Round Brisk None Visual Blanco Right Left Restrictions Partial outer superior temporal, superior nasal deficiencies Extraocular Movement Right Left Full Full Dilation Both eyes: 1% Tropicamide, 2.5% Phenylephrine @ 4:51 PM Slit Lamp and Fundus Exam Slit Lamp Exam Right Left Lids/Lashes Normal ecchymosis, lid edema, small superficial abrasion of medial lower lid Conjunctiva/Sclera White and quiet temporal and nasal SG Cornea Clear Clear Anterior Chamber Deep and quiet Deep, 3+ cell and flare Iris Round and reactive Round, minimally reactive, atrophy Lens Clear Clear Anterior Vitreous Moreira ring Normal Fundus Exam Right Left Disc cupped cupped C/D Ratio 0.7 0.7 Macula Normal Normal Vessels Normal Normal Periphery Normal Normal Lab/Radiology/Diagnostic Review: CT Head WO Contrast, CT Facial Bones WO Contrast 10/27/2024 Findings: CT head: Focal soft tissue thickening involving the right parietal scalp as evidence for a hematoma. No subjacent skull fracture. No acute intracranial hemorrhage. There is no extra-axial fluid collection. Preserved rodríguez-white matter differentiation. The ventricles are normal in size. The basal cisterns appear normal. The orbital contents appear normal. Mucous retention cysts involving the inferior portions of the maxillary sinuses bilaterally. Mastoid air cells are well aerated. No acute fracture CT maxillofacial bones: Orbital roof and floor intact bilaterally. Lamina papyracea are intact. Thezygomas are intact. TMJs are well aligned. The mandible is intact. Nasal bones and nasal septum areintact. Multiple dental caries, periodontal lucencies and periapical lucencies indicating the presence of dental and periodontal disease. There is a fractured left first maxillary molar tooth (best seen on series 2 [address] cervical spine: The cervical vertebral bodies and facets are well aligned. The cervical vertebral body heights are preserved. There is intervertebral disc height loss at C5-6 with endplate degenerative change at this level. No acute fracture nor destructive process of the visualized osseous structures. No abnormal prevertebral or paraspinal soft tissue swelling. ASSESSMENT/PLAN AND RECOMMENDATIONS: This is a 68 y.o. male with PMHx of HTN, HLD, NSTEMI, T2DM, Obesity and OHx of ?retinal tear s/p laser who presents after mechanical fall. Ophthalmology is consulted for c/f nonreactive pupil. #Traumatic iritis, OS - Presentation: Patient reports experiencing photophobia and eye pain after falling off ladder and having it hit him in the left eye - Exam significant for dense 3+ AC cell. No hyphema or microhyphema on exam today. No epi defect onfluorescein stain. Dilated fundus exam with no large retinal detachment or tear - Relief of pain following dilating drops indicative that iris / ciliary body spasm is a contributor to ocular pain - Reviewed return precautions for IOP spike and retinal tear, retinal detachment, or vitreous hemorrhage; patient counseled about possibility of a small occult small tear - Discussed increased risk for posterior vitreous detachment, cataract, and glaucoma in the future #Elevated intraocular pressure, OU - Initial IOP elevated to OD 35 and OS 50. After 3 rounds drops, IOP improved to OD 25 and OS 28. Angle open. Also with superior constriction of VF OD and large and cupped-appearing CDRs 0.7 OU, concerning for undiagnosed open-angle glaucoma. - Patient counseled regarding need for IOP-lowering therapy and close follow-up to monitor IOP and obtain ancillary testing. Recommendations - For Traumatic iritis, start in the LEFT EYE ONLY: - Prednisolone forte BID - Cyclopentolate BID - For elevated intraocular pressure, start in BOTH EYES: - Cosopt BID - Brimonidine BID - Latanoprost QHS - Please ensure patient has bottles in hand before discharge - Patient should wait 3-5 minutes between each drop before administering next drop - Elevate head of bed; avoid heavy lifting or straining - Cool compresses to ecchymosis - Patient was advised to call clinic tomorrow to set up appointment in 1 week - If patient experiences any new vision changes, new flashes/floaters, eye pain, diplopia, or any other concerning ocular changes please page on-call ophthalmology resident If patient experiences any new vision changes, new flashes/floaters, eye pain, diplopia, or any other concerning ocular changes please page on-call ophthalmology resident. Ophthalmology outpatient follow-up: 1 week in [facility] ([facility]) clinic. Please leave phone number for clinic ([phone]) in discharge paperwork with instructions to call the clinic to make an appointment. Return precautions: Patient instructed to call [facility] ([facility]) clinic at [phone] they experience any new vision changes, new flashes/floaters, eye pain, diplopia, or any other concerning ocular changes. Anusha Castaneda MD 10/27/2024 6:24 PM Ophthalmology Resident PGY-2 Please page the ophthalmology resident on-call via [facility] with any questions. This consult is NOT complete without attending attestation and/or cosign. Please note that bedside hospital exams have several limitations that can affect reliability and make it difficult to discern both short-term and long-term visual outcomes including limitations of bedside equipment, inability to control lighting conditions, varying participation, changes in clinical status, and lack of ancillary tests that are available in a clinic setting. Helpful acronym definitions for interpreting an ophthalmology note: AC = anterior chamber; APD = (relative) afferent pupillary defect; BRAO = branched retinal artery occlusion; BRVO = branched retinal vein occlusion; CDR = cup-to-disc ratio; CF = count fingers vision; CRAO = central retinal artery occlusion; CRVO = central retinal vein occlusion; CWS = cotton wool spot; DBH = dot blot hemorrhage; HM = hand motion vision; IOL = intraocular lens; IOP = intraocular pressure; K = cornea; LP = light perception vision; NAION = non- arteritic ischemic optic neuropathy;NLP = no light perception vision; NPDR = nonproliferative diabetic retinopathy; OD = right eye; OS = left eye; PDR = proliferative diabetic retinopathy; PH = pinhole visual acuity; POAG = primary open angle glaucoma; RT = retinal tear; RD = retinal detachment; VA = visual acuity; VH = vitreous hemorrhage; VF = visual field Cosigned by Suzi May MD PhD at 10/27/2024 10:37 PM CDT Associated attestation - Suzi May MD PhD - 10/27/2024 10:37 PM CDT I have not seen or examined the patient. I have discussed the patient with the resident and agree with their assessment and plan as above. Suzi May MD PhD 10/27/2024 10:37 PM documented in this encounter ED Notes * Juan Jamison MD - 10/27/2024 3:28 PM CDT HPI Chief Complaint Patient presents with ??? Fall Pt being transferred from [facility], accpeted by MD Carter as level 3 trauma. Pt fell off ladder (3 steps up) and landed on R knee and L face. Xray of knee is negative but extremely swollen so in the process of getting CT. Head, C spine and face CT negative but his L pupil is fixed and dilated. Coming by ground. Patient History: Patient Active Problem List Diagnosis Date Noted ??? NSTEMI (non-ST elevated myocardial infarction) (HCC) 10/24/2023 ??? Primary hypertension 10/24/2023 ??? Hyperlipidemia 10/24/2023 ??? Type 2 diabetes mellitus without complication, without long-term current use of insulin (HCC) 10/24/2023 ??? Class 1 obesity due to excess calories without serious comorbidity with body mass index (BMI) of 32.0 to 32.9 in adult 10/24/2023 ??? NSTEMI (non-ST elevated myocardial infarction) (HCC) 12/07/2021 ??? Other secondary thrombocytopenia 11/05/2018 Past Medical History: Diagnosis Date ??? Coronary artery disease ??? Hyperlipidemia ??? Hypertension Past Surgical History: Procedure Laterality Date ??? CARDIAC CATHETERIZATION ??? CORONARY ANGIOPLASTY Family History Problem Relation Age of Onset ??? Hyperlipidemia Mother Social History Tobacco Use ??? Smoking status: Never ??? Smokeless tobacco: Never Substance and Sexual Activity ??? Alcohol use: Not on file ??? Drug use: Not Currently ??? Sexual activity: Defer Social History Social History Narrative ??? Not on file Review of Systems Review of Systems Physical Exam ED Triage Vitals Temp Pulse Resp BP SpO2 10/27/24 1527 10/27/24 1520 10/27/24 1520 10/27/24 1525 10/27/24 1520 36.7 ??C (98 ??F) 79 20 (!) 178/100 98 % Temp src Heart Rate Source Patient Position BP Location FiO2 (%) 10/27/24 1527 -- -- -- -- Oral Height Height Method Weight Weight Method 10/27/24 1527 -- 10/27/24 1527 -- 1.829 m (6') 106.6 kg (235 lb) Physical Exam HENT: Head: Left periorbital erythema present. No raccoon eyes. Nose: Signs of injury present. No rhinorrhea. Right Nostril: No septal hematoma or occlusion. Left Nostril: No septal hematoma or occlusion. Mouth/Throat: Lips: [place]. Mouth: Mucous membranes are moist. Pharynx: Oropharynx is clear. Uvula midline. Eyes: General: Visual field deficit: left eye: Visual blanco intact the patient reports blurry vision. Extraocular Movements: Extraocular movements intact. Conjunctiva/sclera: Right eye: Right conjunctiva is not injected. No chemosis, exudate or hemorrhage. Left eye: Hemorrhage present. Pupils: Pupils are unequal. Right eye: Pupil is round, reactive and not sluggish. Left eye: Pupil is not reactive. Pupil is round. Comments: Left pupil: 5-6 mm unreactive Neck: Comments: No tenderness to cervical spine, normal active and passive range of motion without pain. No pain elicited on resisted head rotation Cardiovascular: Rate and Rhythm: Normal rate and regular rhythm. Pulses: Radial pulses are 2+ on the right side and 2+ on the left side. Heart sounds: No murmur heard. Pulmonary: Effort: Pulmonary effort is normal. Breath sounds: Normal breath sounds and air entry. No decreased breath sounds, wheezing, rhonchi orrales. Abdominal: General: Abdomen is flat. Palpations: Abdomen is rigid. Tenderness: There is no abdominal tenderness. Musculoskeletal: Cervical back: Full passive range of motion without pain and normal range of motion. No spinous process tenderness or muscular tenderness. Right upper leg: Swelling and edema present. Right knee: Swelling and effusion present. Decreased range of motion. Normal alignment, normal meniscus and normal patellar mobility. Left lower leg: No edema. Neurological: General: No focal deficit present. Mental Status: He is alert and oriented to person, place, and time. Cranial Nerves: No cranial nerve deficit, dysarthria or facial asymmetry. Sensory: Sensation is intact. Motor: Motor function is intact. Coordination: Coordination is intact. Psychiatric: Attention and Perception: Attention and perception normal. MDM Medical Decision Making Adam Eller this is a 68-year-old male PMH of HTN, HLD here after fall off ladder down 3 steps.He fell onto in his right knee and has significant swelling and pain of the right knee. During the fall he also struck his left face on the ladder rungs and isn't having blurry vision in the left eyewith a poorly reactive and dilated pupil. Exam: Left pupil 5-6 mm poorly reactive, conjunctival hemorrhage of the left eye, left periorbital edema swelling, right knee swollen with limited range of motion due to pain. Outside hospital trauma imaging workup negative for acute fractures to the face or lower extremities. Differential: Fractures unlikely based on imaging already obtained. Right knee likely has a traumatic hemarthrosis. There is moderate concern for right knee tendon/ligament injury. Regarding left eye: The patient is able to count fingers in all visual blanco with a left eye we have low suspicion for traumatic retinal detachment. We are considering glaucoma, optic nerve compression, conjunctiva bleed, traumatic iritis. Based on intact minutes of vision low concern for CRAO or central retinal vein thrombosis. We will continue to monitor visual acuity and consult Ophthalmology. Based on lack of symptoms we have low concern for ACS, stroke, presyncopal contribution to fall, cardiac arrhythmia, hypovolemia We will provide pain relief for right knee continue to observe. No indication for repeat cross-sectional imaging at this time. After ophthalmology has examined the patient we will attempt to ambulatethe patient to help determine disposition. Dispo: Likely discharge Risk OTC drugs. Prescription drug management. Attending Summary of Care ED Course as of 10/27/241948 Time: 10/27 1522 Comment: Teach note: 68yo M PMH of HTN, HLD here after fall off ladder down 3 steps. Traumatic imaging neg except fractured molar, noted to have R knee swelling and L eye periorbital bruising with fixed dilated pupil. Well appearing, HDS on arrival. Will discuss with optho, possibly GTS, dispo pending their recommendations By: Zeeshan Ariza MD Time: 10/27 1548 Comment: Ophthalmology will evaluate patient regarding left eye fixed dilated pupil By: Juan Jamison MD Time: 10/27 1715 Comment: Ophthalmology has examined the patient: He has elevated intractable pressure is bilaterally left greater than right likely secondary to swelling around the eye. Blurry vision likely secondary to traumatic iritis. Ophthalmology will supply recs in terms of eye drops. They will follow up outp atient in 1 week. As long as the patient can ambulate with crutches, we will discharge. By: Juan Jamison MD Time: 10/27 1841 Comment: Teach MOY: 68 yo M PMH of HTN, HLD here after fall off ladder down 3 steps. Traumatic imaging neg except fractured molar. Also has traumatic iritis. Getting walked now. Can go if he can walk Pending ambulation trial Getting discharged By: Fili Miller MD Traumatic iritis Acute pain of right knee Fall from ladder, initial encounter Effusion, right knee Traumatic hemarthrosis of right knee Open-angle glaucoma of both eyes, unspecified glaucoma stage, unspecified open- angle glaucoma type Juan Jamison MD Resident 10/27/241948 Cosigned by Maeve Fuentes MD at 10/28/2024 3:24 PM CDT Associated attestation - Maeve Fuentes MD - 10/28/2024 3:24 PM CDT I have seen and examined the patient on 10/27/2024. I agree with the findings and plan of care as documented in the resident's note. * Sarah Leavitt RN - 10/27/2024 3:14 PM CDT Pt to ED [facility] from [facility] after fall 3 steps up ladder. R knee and L face pain . Arrives in C collar. L pupil fixed and dilated per EMS and bruising noted to eye. On arrival assessmentL conjunctival hemorrhage noted. L eye 4mm R eye 2mm reactive. Endorses some blurry vision in L eye. A&OX4,otherwise neuro intact per EMS. Takes brilinta. * Joi Montez RN - 10/27/2024 3:14 PM CDT Bed: [facility] Expected date: Expected time: Means of arrival: Comments: EMS [id number] Joi Montez RN 10/27/24 1514 documented in this encounter Miscellaneous Notes * Significant Event - Anusha Castaneda MD - 10/27/2024 4:51 PM CDT EYE DILATION NOTE The patient's eyes were dilated by ophthalmology using 1% tropicamide and 2.5% phenylephrine in both eyes (OU) at 4:45PM on 10/27/24. The primary team and nursing staff were notified. Please note the followin) The duration of dilation after instillation of 1% tropicamide and 2.5% phenylephrine is ~6 hours. The duration of 1% cyclopentolate is ~24 hours. 2) Pupil exams during the period of dilation are unreliable. 3) As the effects of these mydriatics wane transient anisocoria may occur. 3) During the dilation period the patient may complain of blurry vision for near targets in the setting of antimuscarinic agents like tropicamide or cyclopentolate which cause paralysis of the ciliary muscle and the inability to accommodate. 4) The patient may have increased light sensitivity due to the dilation. Please page the on-call ophthalmology resident for any questions or concerns. Thank you, Anusha Castaneda MD Ophthalmology Resident PGY-2 * ED Pre-Arrival Note - Hien Mcfarland RN - 10/27/2024 12:09 PM CDT Pre-Arrival Note Pt being transferred from [facility], accpeted by MD Carter as level 3 trauma. Pt fell off ladder (3 steps up) and landed on R knee and L face. Xray of knee is negative but extremely swollen so in the process of getting CT. Head, C spine and face CT negative but his L pupil is fixed and dilated. Coming by ground. Hien Mcfarland RN documented in this encounter Plan of Treatment Not on file documented as of this encounter Procedures Procedure Name Priority Date/Time Associated Diagnosis Comments EGFR STAT 10/27/2024 3:31 PM CDT DIFFERENTIAL AUTO STAT 10/27/2024 3:3 1 PM CDT CBC WITH AUTO DIFFERENTIAL STAT 10/27/2024 3:31 PM CDT COMPREHENSIVE METABOLIC PANEL STAT 10/27/2024 3:31 PM CDT documented in this encounter Results * eGFR (10/27/2024 3:31 PM CDT) eGFR >90 >=60 mL/min/1. 73 m2 Comment: [...] PM CDT 10/27/2024 3:56 PM CDT us Juna Jamison MD LAB BLOOD ORDERABLES Fi nal Result [facility] [place] [address] * (ABNORMAL) Differential, auto (10/27/2024 3:31 PM CDT) Neutrophil abs 11.85(H) 1.50 - 6.50 K/cumm Imm gran abs 0.09 0.00 - 0.10 K/cumm [facility] Lymphocyte abs 1.49 0.80 - 3.30 K/cumm [facility] Monocyte abs 1.03(H) 0.20 - 0.80 K/cumm [facility] Eosinophil abs 0.03 0.00 - 0.50 K/cumm [facility] Basophil abs 0.03 0.00 - 0.10 K/cumm [facility] Neutrophil pct 81.6 % [facility] Comment: Interpretive Data Percent cell count reference ranges are not reported, since discordance with absolute values may lead to misinterpretation of CBC data. Current Interpretive Data was last revised on 2017. Imm gran pct 0.6 % [facility] Comment: Interpretive Data Percent cell count reference ranges are not reported, since discordance with absolute values may lead to misinterpretation of CBC data. Current Interpretive Data was last revised on 2017. Lymphocyte pct 10.3 % [facility] Comment: Interpretive Data Percent cell count reference ranges are not reported, since discordance with absolute values may lead to misinterpretation of CBC data. Current Interpretive Data was last revised on 2017. Monocyte pct 7.1 % [facility] Comment: Interpretive Data Percent cell count reference ranges are not reported, since discordance with absolute values may lead to misinterpretation of CBC data. Current Interpretive Data was last revised on 2017. Eosinophil pct 0.2 % [facility] Comment: Interpretive Data Percent cell count reference ranges are not reported, since discordance with absolute values may lead to misinterpretation of CBC data. Current Interpretive Data was last revised on 2017. Basophil pct 0.2 % [facility] Comment: Interpretive Data Percent cell count reference ranges are not reported, since discordance with absolute values may lead to misinterpretation of CBC data. Current Interpretive Data was last revised on 2017. Blood 10/27/2024 3:31 PM CDT 10/27/2024 3:56 PM CDT us Juan Jamison MD LAB BLOOD ORDERABLES Fi nal Result [facility] [place] [address] * Comprehensive metabolic panel (10/27/2024 3:31 PM CDT) Sodium 139 135 - 145 mmol/L Potassium, pl 3.8 3.3 - 4.9 mmol/L [facility] Chloride 101 97 - 110 mmol/L [facility] CO2 25 22 - 32 mmol/L [facility] Anion gap 13 2 - 15 mmol/L [facility] BUN 21 6 - 25 mg/dL [facility] Creatinine 0.81 0.80 - 1.30 mg/dL [facility] Glucose 106 70 - 199 mg/dL [facility] Comment: Interpretive Data Fasting glucose >/= 126 [...] 2022. Calcium 9.3 8.5 - 10.3 mg/dL [facility] Bilirubin, total 0.5 0.1 - 1.2 mg/dL [facility] Protein, pl 7.2 6.5 - 8.5 g/dL [facility] Albumin 4.1 3.5 - 5.0 g/dL [facility] Alk phos 79 40 - 130 Units/L [facility] ALT 49 7 - 55 Units/L [facility] AST 49 10 - 50 Units/L [facility] Blood 10/27/2024 3:31 PM CDT 10/27/2024 3:56 PM CDT Juan Jamison MD LAB BLOOD ORDERABLES Fi nal Result Performing Organization Address City/[facility]/ZIP Co de Phone Number [facility] Department [place] [employer] [place] [place] [address] * (ABNORMAL) CBC with auto differential (10/27/2024 3:31 PM CDT) WBC 14.52(H) 3.80 - 9.90 K/cumm Hgb 14.4 13.0 - 17.5 g/dL [facility] Hct 42.8 38.9 - 50.3 % [facility] Plt 172 150 - 400 K/cumm [facility] MPV 10.6 9.1 - 12.3 fL [facility] RBC 5.01 4.30 - 5.80 M/cumm [facility] MCV 85.4 81.3 - 96.4 fL [facility] MCH 28.7 27.1 - 33.3 pg [facility] MCHC 33.6 32.3 - 35.7 g/dL [facility] RDW CV 13.2 11.1 - 14.9 % [facility] RDW SD 41.1 35.7 - 48.1 fL [facility] NRBC abs 0.00 0.00 - 0.01 K/cumm [facility] Blood 10/27/2024 3:31 PM CDT 10/27/2024 3:56 PM CDT Juan Jamison MD LAB BLOOD ORDERABLES Fi nal Result Performing Organization Address City/[facility]/ZIP Co de Phone Number [facility] [place] [address] documented in this encounter Visit Diagnoses Diagnosis Traumatic iritis- Primary Unspecified iridocyclitis Acute pain of right knee Fall from ladder, initial encounter Effusion, right knee Traumatic hemarthrosis of right knee Open-angle glaucoma of both eyes, unspecified glaucoma stage, unspecified open- angle glaucoma type documented in this encounter Administered Medications Inactive Administered Medications - up to 3 most recent administrations Medication Order MAR Action Action Date Dose Rate Site brimonidine (ALPHAGAN) 0.2 % ophthalmic solution 1 drop 1 drop, each eye, Once, On Sat10/27/24 at 1829, For 1 dose, Please leave bottle with patient Given 10/27/2024 7:24 PM CDT 1 drop cyclopentolate (CYCLOGYL) 1 % ophthalmic solution 1 drop 1 drop, left eye, Once, On Sat10/27/24 at 1820, For 1 dose, Please leave bottle with patient. Given 10/27/2024 7:24 PM CDT 1 drop dorzolamide (TRUSOPT) 2 % ophthalmic solution 1 drop 1 drop, each eye, Once, On Sat10/27/24 at 1820, For 1 dose, Please leave bottle with patient. Given 10/27/2024 7:24 PM CDT 1 drop ibuprofen (ADVIL,MOTRIN) tablet 800 mg 800 mg, oral, Once, On Sat10/27/24 at 1721, For 1 dose, Do not crush, break, or open. Given 10/27/2024 5:26 PM CDT 800 mg latanoprost (XALATAN) 0.005 % ophthalmic solution 1 drop 1 drop, each eye, Once, On Sat10/27/24 at 1829, For 1 dose, Please leave bottle with patient Given 10/27/2024 7:24 PM CDT 1 drop prednisoLONE acetate (PRED FORTE) 1 % ophthalmic suspension 1 drop 1 drop, left eye, Once, On Sat10/27/24 at 1820, For 1 dose, Please leave bottle with patient. shake well Given 10/27/2024 7:23 PM CDT 1 drop timolol (TIMOPTIC) 0.5 % ophthalmic solution 1 drop 1 drop, each eye, Once, On Sat10/27/24 at 1820, For 1 dose, Please leave bottle with patient. Given 10/27/2024 7:24 PM CDT 1 drop documented in this encounter Active and Recently Administered Medications Times are shown in CDT. Scheduled Medication Order 10/25/2024 10/26/2024 10/27/2024 acetaminophen (TYLENOL) tablet 1,000 mg 1,000 mg, oral, Once, On e 10/27/24 at 1531, For 1 dose 1538 (Not Given - Pr ovider: Brittany Noguera RN - Reason: Patient/family refused) brimonidine (ALPHAGAN) 0.2 % ophthalmic solution 1 drop (COMPLETED) 1 drop, each eye, Once, On e 10/27/24 at 1829, For 1 dose, Please leave bottle with patient 192 (Given - Provid er: Bran Rae RN) cyclopentolate (CYCLOGYL) 1 % ophthalmic solution 1 drop (COMPLETED) 1 drop, left eye, Once, On 10/27/24 at 1820, For 1 dose, Please leave bottle with patient. 192 (Given - Provid er: Bran Rae RN) dorzolamide (TRUSOPT) 2 % ophthalmic solution 1 drop (COMPLETED)(Linked Group 1) 1 drop, each eye, Once, On e 10/27/24 at 1820, For 1 dose, Please leave bottle with patient. 192 (Given - Provid er: Bran Rae RN) ibuprofen (ADVIL,MOTRIN) tablet 800 mg (COMPLETED) 800 mg, oral, Once, On e 10/27/24 at 1721, For 1 dose, Do not crush, break, or open. 172 (Given - Provid er: Brittany Noguera RN) latanoprost (XALATAN) 0.005 % ophthalmic solution 1 drop (COMPLETED) 1 drop, each eye, Once, On e 10/27/24 at 1829, For 1 dose, Please leave bottle with patient 192 (Given - Provid er: Bran Rae RN) oxyCODONE (ROXICODONE) tablet 5 mg 5 mg, oral, Once, On 10/27/24 at 1531, For 1 dose, Indications: Pain 1538 (Not Given - Pr ovider: Brittany Noguera RN - Reason: Patient/family refused) prednisoLONE acetate (PRED FORTE) 1 % ophthalmic suspension 1 drop (COMPLETED) 1 drop, left eye, Once, On Sat10/27/24 at 1820, For 1 dose, Please leave bottle with patient. murphy herron 1922 (Given - Provid er: Bran Rae, RN) timolol (TIMOPTIC) 0.5 % ophthalmic solution 1 drop (COMPLETED)(Linked Group 1) 1 drop, each eye, Once, On Sat10/27/24 at 1820, For 1 dose, Please leave bottle with patient. 1923 (Given - Provid er: Bran Rae, CINDY) Linked Groups Order Group 1: dorzolamide (TRUSOPT) 2 % ophthalmic solution 1 drop (COMPLETED)Jump to med 1 drop, each eye, Once, On Sat10/27/24 at 1820, For 1 dose, Please leave bottle with patient. And timolol (TIMOPTIC) 0.5 % ophthalmic solution 1 drop (COMPLETED)Jump to med 1 drop, each eye, Once, On Sat10/27/24 at 1820, For 1 dose, Please leave bottle with patient. documented in this encounter Orders Medications Ordered That Ziyad ht Not Have Been Administered Count Last Ordered Date First Ordered Date acetaminophen (TYLENOL) tablet 1,000 mg 1 0 10/27/2024 oxyCODONE (ROXICODONE) tablet 5 mg 1 2024 Nursing Count Last Ordered Date First Orde red Date AMBULATE PATIENT 1 10/27/2024 VISUAL ACUITY SCREENING 1 10/27/2024 Consult Count Last Ordered Date First Orde red Date IP CONSULT TO OPHTHALMOLOGY 1 10/27/2024 documented in this encounter Care Teams Greenhouse Technician Relationship Specialty Start Date End Date Hien Faustin MD PCP - General Family Medicine 11/22/21 Danna Kim MD Family Practice 11/22/21 documented as of this encounter
--- OUTSIDE RECORDS SUMMARY | 2024-10-29 12:48 | XMS_ITS | Encounter Summary ---
Author Organization [facility] Healthcare Address [address] [place] [address] Care Team Providers Care Supervisor Dehydrogenation Name Role Phone Hien Faustin MD Primary Care Provider [phone] Danna Kim MD Unavailable [phone] Encounter Details Date Type Department Care Team (Late st Contact Info) Description 10/26/[address] [address] Cheryl Harris, RN Social History Tobacco Use Types Packs/Day Years Used Date Smoking Tobacco: Never Smokeless Tobacco: Never [facility] Utilities Answer Date Recorded In the past 12 months has th [employer], gas, oil, or water company threatened [...] often do you attend chur ch or hindu services? 1 to 4 times per year 10/24/2023 Do you belong to any clubs o r organizations such as congregational groups, unions, fraternal or athletic groups, or [...] any time in the past 12 [facility], were you homeless or living in a fpc (including now)? No 10/24/2023 Personal Safety Answer Date Recorded Have you ever been in or are you currently in a harmful physical or emotional relationship or is someone making you feel afraid or unsafe? 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
--- OUTSIDE RECORDS SUMMARY | 2024-10-29 12:48 | XMS_ITS | Clinical Summary ---
Author Organization 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 90 tablet 12/08/2021 Active quinapril (ACCUPRIL) 40 MG tablet Take 1 tablet (40 mg total) by mouth 2 (two) times daily. 90 tablet 4 12/22/2021 Active prasugrel (EFFIENT) 10 MG tablet Take 1 tablet (10 mg total) by mouth daily. 90 tablet 4 12/22/2021 Active aspirin 81 MG chewable tablet Chew 1 tablet (81 mg total) by mouth daily. 90 tablet 4 12/22/2021 Active rosuvastatin (CRESTOR) 40 MG tablet Take 1 tablet (40 mg total) by mouth nightly at bedtime. 90 tablet 4 12/22/2021 Active hydroCHLOROthia zide (HYDRODIURIL) 25 MG tablet Take 1 tablet by mouth once daily 30 tablet 03/12/2023 Active amLODIPine (NORVASC) 5 MG tablet Take 1 tablet by mouth once daily 30 tablet 03/12/2023 Active Active Problems Problem Noted Date Diagnosed Date NSTEMI (non-ST elevated myoc ardial infarction) ([facility]/HCC HHS/HCC) 12/07/2021 Unstable angina ([facility]/HCC HHS/HCC) 12/07/2021 Encounters Date Type Department Care Team Description 10/27/2024 10:46 AM CDT - 10/27/2024 2:30 PM CDT Emergency [facility] Emergency Room [id number] [place] [address] Raine Markham MD Fall; Knee Pain Discharge Disposition: Transfer to Acute Care Hospital 10/27/2024 Travel from Last 3 Months Immunizations Immunization Administration Dates Next Due Td (TDVAX) 02/04/2020 Tdap (Generic) 03/19/2007 Social History Tobacco Use Types Packs/Day Years Used Date Smoking Tobacco: Former Smokeless Tobacco: Never Alcohol Use Standard Drinks/Week Comments Not Currently 0 (1 standard drink = 0.6 oz pur e alcohol) Sex and Gender Information Value Date Recorded Sex Assigned at Not on file Legal Sex Male 12:15 PM [employer] Gender Identity Not on file Sexual Orientation Not on file Last Filed Vital Signs Vital Sign Reading Time Taken Comments Blood Pressure 157/91 10/27/2024 1:15 PM CDT Pulse 68 10/27/2024 10:50 AM CDT Temperature 36.6 C (97.9 F) 10/27/2024 10:50 AM CDT Respiratory Rate 16 10/27/2024 10:50 AM CDT Oxygen Saturation 97% 10/27/2024 1:50 PM CDT Inhaled Oxygen Concentration - - Weight 106.6 kg (235 lb) 10/27/2024 10:50 AM CDT Height 182.9 cm (6') 10/27/2024 10:50 AM CDT Body Mass Index 31.87 10/27/2024 10:50 AM CDT Plan of Treatment Health Maintenance Due Date Last Done Comments ASCVD Statin 1955 Colorectal Cancer Screening Colonoscopy (10 Years) 1955 Pneumococcal Vaccine: 50+ Years (1 of 2 - PCV) 11/24/1974 Zoster Vaccines (1 of 2) 11/24/2005 RSV Immunization or 60+ Years (1 - Risk 60-74 years 1-dose series) 2015 Annual Medicare Wellness Visit 11/24/2020 COVID-19 Vaccine (1 - 2023-2 5 season) 2023 ASCVD LDL 10/22/2024 10/23/2023, 12/07/2021 DTaP, Tdap and Td Vaccines ( 3 - Td or Tdap) 02/03/2030 02/04/2020, 03/19/2007 Hepatitis C Completed 04/09/2017 AAA SCREENING Completed 04/19/2017 Meningococcal B Vaccine Aged Out No l onger eligible based on patient's age to complete this topic Meningococcal Vaccine Aged Out No juan antonio lyndon eligible based on patient's age to complete this topic RSV Immunizations Under 20 Months Aged Out No longer eligible b ased on patient's age to complete this topic Goals Goal Patient Goal Type Associated Problems Recent Progress Patient-Stated? Author Health - patient able to perform ADLs independently Lifestyle No Hailey Armas RN Procedures Procedure Name Priority Date/Time Associated Diagnosis Comments PROTHROMBIN TIME, VENOUS STAT 10/27/2024 12:13 PM CDT COMPREHENSIVE METABOLIC PANEL STAT 10/27/2024 12:13 PM CDT CBC W/DIFF AUTOMATED STAT 10/27/2024 12:13 PM CDT XR TIBIA+FIBULA RT 2V STAT 10/27/2024 12:08 PM CDT XR FEMUR RT 2V STAT 10/27/2024 12:[address] KNEE RT WO CON STAT 10/27/2024 12: 08 PM CDT XR KNEE RT 3V STAT 10/27/2024 11:[address] CERV SPINE WO CON STAT 10/27/2024 11:[address] FACIAL BONES WO CON STAT 11:[address] HEAD WO CON STAT 10/27/2024 11:21 AM CDT LIPID PANEL STAT 10/23/2023 10:48 AM CDT from Last 3 Months or Most Recently Relevant to Health Maintenance Results * PROTIME/INR, VENOUS (10/27/2024 12:13 PM CDT) PROTIME 12.0 9.1 - 12.4 SEC 10/27/2024 12:24 PM CDT [facility] INR 1.0 10/27/2024 12:24 PM CDT [facility] Comment: Recommend INR ranges for Oral Anticoagulant Therapy: Mechanical Cardiac Values 2.5-3.5 All others indication 2.0-3.0 10/27/2024 12:1 3 PM CDT Raine Markham MD LABORATORY Final Result [facility] [address] [place] [address], * (ABNORMAL) COMPREHENSIVE METABOLIC PANEL (10/27/2024 12:13 PM CDT) GLUCOSE 134(H) 70 - 99 MG/DL 10/27/2024 12:35 PM CDT [facility] BUN 24(H) 7 - 18 MG/DL 10/27/2024 12:35 PM CDT [facility] CREATININE S/P/B 0.89 0.7 - 1.3 MG/DL 10/27/2024 12:35 PM CDT [facility] SODIUM S/P/B 140 136 - 145 MMOL/L 10/27/2024 12:35 PM CDT [facility] POTASSIUM S/P/B 3.8 3.5 - 5.1 MMOL/L 10/27/2024 12:35 PM CDT [facility] CHLORIDE S/P/B 102 100 - 108 MMOL/L 10/27/2024 12:35 PM CDT [facility] CO2 25.8 21 - 32 MMOL/L 10/27/2024 12:35 PM [facility] CALCIUM S/P/B 9.0 8.5 - 10.1 MG/DL 10/27/2024 12:35 PM [facility] BILIRUBIN TOTAL S/P/B 0.5 0.2 - 1.2 MG/DL 10/27/2024 12:35 PM [facility] TOTAL PROTEIN S/P/B 7.3 6.4 - 8.2 G/DL 10/27/2024 12:35 PM [facility] ALBUMIN S/P/B 3.8 3.4 - 5.0 G/DL 10/27/2024 12:35 PM [facility] AST 39(H) 15 - 37 U/L 10/27/2024 12:35 PM [facility] ALT 57 16 - 60 U/L 10/27/2024 12:35 PM [facility] ALKALINE PHOSPHATASE S/P/B 87 50 - 136 U/L 10/27/2024 12:35 PM [facility] ANION GAP 12.2 5 - 15 MMOL/L 10/27/2024 12:35 PM [facility] BUN CREATININE RATIO 27.0(H) 6 - 26 10/27/2024 12:35 PM [facility] A/G RATIO 1.1 1.0 - 2.0 RATIO 10/27/2024 12:35 PM [facility] GFR ESTIMATE >90 >90 ML/MIN/1.7 3 M2 10/27/2024 12:35 PM [facility] Comment: NOTE: eGFR is not calculated for patients <18 years of age. This is an estimated GFR calculation using the new CKD EPI creatinine equation without race and so does not require a correction factor for race. This estimated GFR should not be used for calculating drug doses. 10/27/2024 12:1 3 PM CDT Raine Markham MD LABORATORY Final Result [facility] [address] [place] [address], [place] [phone] * (ABNORMAL) CBC W/DIFF AUTOMATED (10/27/2024 12:13 PM CDT) WBC 15.06(H) 4.4 - 11.0 x10'3/uL 10/27/2024 12:30 PM CDT [facility] RBC 5.08 4.50 - 5.90 x10'6/uL 10/27/2024 12:30 PM CDT [facility] HGB 15.0 14.0 - 17.5 G/DL 10/27/2024 12:30 PM CDT [facility] HCT 43.2 41.5 - 50.4 % 10/27/2024 12:30 PM CDT [facility] MCV 85.0 80.0 - 96.0 FL 10/27/2024 12:30 PM CDT [facility] MCH 29.5 26.5 - 31.4 PG 10/27/2024 12:30 PM CDT [facility] MCHC 34.7 31.9 - 34.8 G/DL 10/27/2024 12:30 PM CDT [facility] RDW 13.0 12.3 - 14.3 % 10/27/2024 12:30 PM CDT [facility] PLT 158 151 - 353 x10'3/uL 10/27/2024 12:30 PM CDT [facility] MPV 10.1 9.7 - 11.9 FL 10/27/2024 12:30 PM CDT [facility] RBC MORPHOLOGY NORMAL 10/27/2024 12:30 PM CDT [facility] PLT MORPH. NORMAL 10/27/2024 12:30 PM CDT [facility] WBC MORPHOLOGY NORMAL 10/27/2024 12:30 PM CDT [facility] LYMPHOCYTES % 7.3(L) 15.8 - 45.0 % 10/27/2024 12:30 PM CDT [facility] NEUTROPHILS % 86.1(H) 42.1 - 71.9 % 10/27/2024 12:30 PM CDT [facility] MONOCYTES % 5.4(L) 5.7 - 12.5 % 10/27/2024 12:30 PM CDT [facility] EOSINOPHILS 0.3 0.0 - 5.6 % 10/27/2024 12:30 PM CDT [facility] BASOPHILS 0.3 0.0 - 1.3 % 10/27/2024 12:30 PM CDT [facility] ABS. NEUTROPHILS 12.97(H) 1.40 - 6.00 x10'3/uL 10/27/2024 12:30 PM CDT [facility] IMMATURE GRANS % 0.6(H) 0.0 - 0.5 % 10/27/2024 12:30 PM CDT [facility] ABS. LYMPHOCYTES 1.10 0.80 - 4.70 x10'3/uL 10/27/2024 12:30 PM CDT [facility] 10/27/2024 12:1 3 PM CDT us Raine Markham MD LABORATORY Final Result [facility] [address] [place] [address], [place] [phone] * XR TIBIA+FIBULA RT 2V (10/27/2024 12:08 PM CDT) Anatomical Region Laterality Modality TibFib Radiographic Ivelisse ging 10/27/2024 12:1 7 PM CDT Impressions 10/27/2024 12:19 PM CDT IMPRESSION: No acute osseous abnormality. Ordered By: RAINE MARKHAM Interpreted By: Paola Sharp, 10/27/2024 12:17 PM Narrative 10/27/2024 12:19 PM CDT [address] [place] [address] IMAGING STUDIES: XR TIBIA+FIBULA RT 2V DATE: 10/27/2024 11:46 AM COMPARISON: No comparisons. CLINICAL HISTORY: fall . FINDINGS: There is no evidence of acute fracture, dislocation, or osseous erosion. Osteopenia limits exam No radiopaque foreign bodies or abnormal soft tissue calcifications noted. Degenerative changes about the knee and ankle. Procedure Note Rajeev Sharp MD - 10/27/[address] [place] [address] IMAGING STUDIES: XR TIBIA+FIBULA RT 2V DATE: 10/27/2024 11:46 AM COMPARISON: No comparisons. CLINICAL HISTORY: fall . FINDINGS: There is no evidence of acute fracture, dislocation, or osseous erosion.Osteopenia limits exam No radiopaque foreign bodies or abnormal soft tissue calcificationsnoted. Degenerative changes about the knee and ankle. IMPRESSION: No acute osseous abnormality. Ordered By: RAINE MARKHAM Interpreted By: Paola Sharp, 10/27/2024 12:17 PM Raine Markham MD GENERAL IMAGING Final Result * XR FEMUR RT 2V (10/27/2024 12:08 PM CDT) Anatomical Region Laterality Modality Femur Radiographic Ivelisse ging 10/27/2024 12:1 4 PM CDT Impressions 10/27/2024 12:17 PM CDT IMPRESSION: 1. No acute osseous abnormality. 2. Soft tissue swelling overlying the anterior distal right femur. No gross underlying osseous abnormality. Ordered By: RAINE MARKHAM Interpreted By: Paola Sharp, 10/27/2024 12:14 PM Narrative 10/27/2024 12:17 PM CDT [address] [place] [address] IMAGING STUDIES: XR FEMUR RT 2V DATE: 10/27/2024 11:46 AM COMPARISON: No comparisons. CLINICAL HISTORY: fall . Pain FINDINGS: There is no evidence of acute fracture, dislocation, or osseous erosion. No radiopaque foreign bodies or abnormal soft tissue calcifications noted. Mild degenerative change about the right hip. Mild to moderate degenerative change about the right knee with postsurgical change at the right knee. Soft tissue swelling overlying the anterior distal right femur. No gross underlying osseous abnormality Procedure Note Rajeev Sharp MD - 10/27/2024 [facility] [address] [place] [address] IMAGING STUDIES: XR FEMUR RT 2V DATE: 10/27/2024 11:46 AM COMPARISON: No comparisons. CLINICAL HISTORY: fall . Pain FINDINGS: There is no evidence of acute fracture, dislocation, or osseous erosion. No radiopaque foreign bodies or abnormal soft tissue calcificationsnoted. Mild degenerative change about the right hip. Mild to moderatedegenerative change about the right knee with postsurgical change at theright knee. Soft tissue swelling overlying the anterior distal right femur. No grossunderlying osseous abnormality IMPRESSION: 1. No acute osseous abnormality. 2. Soft tissue swelling overlying the anterior distal right femur. Nogross underlying osseous abnormality. Ordered By: RAINE MARKHAM Interpreted By: Paola Sharp, 10/27/2024 12:14 PM Raine Markham MD GENERAL IMAGING Final Result * CT KNEE RT WO CON (10/27/2024 12:08 PM CDT) Anatomical Region Laterality Modality Knee Computed Tomogra phy 10/27/2024 1:20 PM CDT Impressions 10/27/2024 1:36 PM CDT IMPRESSION: POSTOPERATIVE AND ARTHRITIC CHANGE INCLUDING OSTEOARTHRITIS AND PSEUDOGOUT. SMALL JOINT EFFUSION. NO ACUTE ABNORMALITY OF THE RIGHT KNEE OTHERWISE NOTED. Referred By: Interpreted By: Prosper Nolasco MD, 10/27/2024 1:20 PM Narrative 10/27/2024 1:36 PM [address]T [address] [place] [address] EXAM: CT KNEE RT WO CON INDICATION: FALL OFF LADDER DIRECTLY ON KNEE KNEE PAIN SUP TO PATELLA TECHNIQUE: Axial noncontrast CT study of the right knee was performed. Coronal and sagittal reformatted images were created and reviewed. A dose lowering technique was used for this procedure, which may include, but is not limited to, dose reduction technique, automated exposure control, the use of iterative reconstruction, and ALARA (As Low As Reasonably Achievable) / Image Gently techniques. COMPARISON EXAM: Right femur, right knee and right tibia and fibula x-ray studies from earlier today. FINDINGS: There is postoperative change of prior anterior cruciate ligament repair. Distal femoral and proximal tibial interference screws are noted with no evidence of failure or loosening. There is moderate tricompartmental arthritic change. Chondrocalcinosis of the meniscal cartilage is noted, indicating a component of pseudogout. There are numerous chronic intra-articular loose bodies. There is no evidence of an acute fracture or subluxation. There is a small suprapatellar effusion. Procedure Note Prosper Nolasco MD - 10/27/2024 [facility] [address] [place] [id number] EXAM: CT KNEE RT WO CON INDICATION: FALL OFF LADDER DIRECTLY ON KNEE KNEE PAIN SUP TO PATELLA TECHNIQUE: Axial noncontrast CT study of the right knee was performed.Coronal and sagittal reformatted images were created and reviewed. A dose lowering technique was used for this procedure, which may include,but is not limited to, dose reduction technique, automated exposurecontrol, the use of iterative reconstruction, and ALARA (As Low AsReasonably Achievable) / Image Gently techniques. COMPARISON EXAM: Right femur, right knee and right tibia and fibula x-raystudies from earlier today. FINDINGS: There is postoperative change of prior anterior cruciateligament repair. Distal femoral and proximal tibial interference screwsare noted with no evidence of failure or loosening. There is moderatetricompartmental arthritic change. Chondrocalcinosis of the meniscalcartilage is noted, indicating a component of pseudogout. There arenumerous chronic intra-articular loose bodies. There is no evidence of anacute fracture or subluxation. There is a small suprapatellar effusion. IMPRESSION: POSTOPERATIVE AND ARTHRITIC CHANGE INCLUDING OSTEOARTHRITISAND PSEUDOGOUT. SMALL JOINT EFFUSION. NO ACUTE ABNORMALITY OF THE RIGHTKNEE OTHERWISE NOTED. Referred By: Interpreted By: Prosper Nolasco MD, 10/27/2024 1:20 PM Raine Markham MD CT Final Result * XR KNEE RT 3V (10/27/2024 11:28 AM CDT) Anatomical Region Laterality Modality Knee Radiographic Ivelisse ging 10/27/2024 11:3 8 AM CDT Impressions 10/27/2024 11:42 AM CDT IMPRESSION: 1. No acute osseous abnormality. 2. Small joint effusion. 3. Osteopenia. 4. Degenerative changes. Ordered By: RAINE MARKHAM Interpreted By: Paola Sharp, 10/27/2024 11:38 AM Narrative 10/27/2024 11:42 AM CDT [facility] [address] [place] [address] IMAGING STUDIES: XR KNEE RT 3V DATE: 10/27/2024 11:28 AM COMPARISON: No comparisons. CLINICAL HISTORY: fell off a ladder . Pain. FINDINGS: There is no evidence of acute fracture, dislocation, or osseous erosion. Osteopenia limits exam. Moderate decrease in medial joint space with mild medial osteophyte. Lateral joint spaces well-maintained without osteophyte. Mild tibial spine spurring. Intact hardware from prior ACL repair. No radiopaque foreign bodies or abnormal soft tissue calcifications noted. Patella is intact. Mild patellofemoral degenerative change. Small joint effusion. Procedure Note Rajeev Sharp MD - 10/27/2024 [facility] [address] [facility] [place] [address] IMAGING STUDIES: XR KNEE RT 3V DATE: 10/27/2024 11:28 AM COMPARISON: No comparisons. CLINICAL HISTORY: fell off a ladder . Pain. FINDINGS: There is no evidence of acute fracture, dislocation, or osseous erosion.Osteopenia limits exam. Moderate decrease in medial joint space with mild medial osteophyte. Lateral joint spaces well-maintained without osteophyte. Mild tibial spinespurring. Intact hardware from prior ACL repair. No radiopaque foreign bodies or abnormal soft tissue calcificationsnoted. Patella is intact. Mild patellofemoral degenerative change. Small jointeffusion. IMPRESSION: 1. No acute osseous abnormality. 2. Small joint effusion. 3. Osteopenia. 4. Degenerative changes. Ordered By: RAINE MARKHAM Interpreted By: Paola Sharp, 10/27/2024 11:38 AM Raine Markham MD GENERAL IMAGING Final Result * CT HEAD WO CON (10/27/2024 11:21 AM CDT) Anatomical Region Laterality Modality Head Computed Tomogra phy 10/27/2024 11:3 1 AM CDT Impressions 10/27/2024 11:34 AM CDT IMPRESSION: 1. No CT evidence of an acute intracranial abnormality. 2. No maxillofacial bone fracture. 3. No cervical spine fracture. 4. Multiple dental caries, periodontal lucencies and periapical lucencies indicating the presence of dental and periodontal disease. There is a fractured left first maxillary molar tooth. Ordered By: RAINE MARKHAM Interpreted By: Corey Maldonado MD, 10/27/2024 11:31 AM Narrative 10/27/2024 11:34 AM CDT [facility] [address] [place] [address] Examination: CT HEAD WO CON, CT CERV SPINE WO CON, CT FACIAL BONES WO CON, 10/27/2024 11:18 AM. Technique: Computed tomographic images of the head, maxillofacial bones and cervical spine were obtained without intravenous contrast. Additional coronal and sagittal reformatted images were generated at a separate workstation. A dose lowering technique was used for this procedure, which may include, but is not limited to, dose reduction technique, automated exposure control, the use of iterative reconstruction, and ALARA (As Low As Reasonably Achievable) / Image Gently techniques. Clinical history: head injury Comparison: None available Findings: CT head: Focal soft tissue thickening [...] floor intact bilaterally. Lamina papyracea are intact. The zygomas are intact. TMJs are well aligned. The mandible is intact. Nasal bones and nasal septum are intact. Multiple dental caries, periodontal lucencies and periapical [...] abnormal prevertebral or paraspinal soft tissue swelling. Procedure Note Corey Maldonado MD - 10/27/2024 [facility] [address] [place] [address] Examination: CT HEAD WO CON, CT CERV SPINE WO CON, CT FACIAL BONES WO CON,10/27/2024 11:18 AM. Technique: Computed tomographic images of the head, maxillofacial bonesand cervical spine were obtained without intravenous contrast. Additionalcoronal and sagittal reformatted images were generated at a separateworkstation. A dose lowering technique was used for this procedure, whichmay include, but is not limited to, dose reduction technique, automatedexposure control, the use of iterative reconstruction, and ALARA (As LowAs Reasonably Achievable) / Image Gently techniques. Clinical history: head injury Comparison: None available Findings: CT head: Focal soft tissue thickening involving the right parietal scalpas evidence for a hematoma. No subjacent skull fracture. No acuteintracranial hemorrhage. There is no extra-axial fluid collection.Preserved rodríguez-white matter differentiation. The ventricles are normal insize. The basal cisterns appear normal. The orbital contents appearnormal. Mucous retention cysts involving the inferior portions of themaxillary sinuses bilaterally. Mastoid air cells are well aerated. Noacute fracture CT maxillofacial bones: Orbital roof and floor intact bilaterally. Laminapapyracea are intact. The zygomas are intact. TMJs are well aligned. Themandible is intact. Nasal bones and nasal septum are intact. Multipledental caries, periodontal lucencies and periapical lucencies indicatingthe presence of dental and periodontal disease. There is a fractured leftfirst maxillary molar tooth (best seen on series 2 [address] 25[address] cervical spine: The cervical vertebral bodies and facets are wellaligned. The cervical vertebral body heights are preserved. There isintervertebral disc height loss at C5-6 with endplate degenerative changeat this level. No acute fracture nor destructive process of the visualizedosseous structures. No abnormal prevertebral or paraspinal soft tissueswelling. IMPRESSION: 1. No CT evidence of an acute intracranial abnormality. 2. No maxillofacial bone fracture. 3. No cervical spine fracture. 4. Multiple dental caries, periodontal lucencies and periapical lucenciesindicating the presence of dental and periodontal disease. There is afractured left first maxillary molar tooth. Ordered By: RAINE MARKHAM Interpreted By: Corey Maldonado MD, 10/27/2024 11:31 AM Raine Markham MD CT Final Result * CT FACIAL BONES WO CON (10/27/2024 11:21 AM CDT) Anatomical Region Laterality Modality Facial Computed Tomogra phy 10/27/2024 11:3 1 AM CDT Impressions 10/27/2024 11:34 AM CDT IMPRESSION: 1. No CT evidence of an acute intracranial abnormality. 2. No maxillofacial bone fracture. 3. No cervical spine fracture. 4. Multiple dental caries, periodontal lucencies and periapical lucencies indicating the presence of dental and periodontal disease. There is a fractured left first maxillary molar tooth. Ordered By: RAINE MARKHAM Interpreted By: Corey Maldonado MD, 10/27/2024 11:31 AM Narrative 10/27/2024 11:34 AM CDT [facility] [address] [facility] [place] [address] Examination: CT HEAD WO CON, CT CERV SPINE WO CON, CT FACIAL BONES WO CON, 10/27/2024 11:18 AM. Technique: Computed tomographic images of the head, maxillofacial bones and cervical spine were obtained without intravenous contrast. Additional coronal and sagittal reformatted images were generated at a separate workstation. A dose lowering technique was used for this procedure, which may include, but is not limited to, dose reduction technique, automated exposure control, the use of iterative reconstruction, and ALARA (As Low As Reasonably Achievable) / Image Gently techniques. Clinical history: head injury Comparison: None available Findings: CT head: Focal soft tissue thickening [...] floor intact bilaterally. Lamina papyracea are intact. The zygomas are intact. TMJs are well aligned. The mandible is intact. Nasal bones and nasal septum are intact. Multiple dental caries, periodontal lucencies and periapical [...] abnormal prevertebral or paraspinal soft tissue swelling. Procedure Note Corey Maldonado MD - 10/27/2024 [facility] [address] [place] [address] Examination: CT HEAD WO CON, CT CERV SPINE WO CON, CT FACIAL BONES WO CON,10/27/2024 11:18 AM. Technique: Computed tomographic images of the head, maxillofacial bonesand cervical spine were obtained without intravenous contrast. Additionalcoronal and sagittal reformatted images were generated at a separateworkstation. A dose lowering technique was used for this procedure, whichmay include, but is not limited to, dose reduction technique, automatedexposure control, the use of iterative reconstruction, and ALARA (As LowAs Reasonably Achievable) / Image Gently techniques. Clinical history: head injury Comparison: None available Findings: CT head: Focal soft tissue thickening involving the right parietal scalpas evidence for a hematoma. No subjacent skull fracture. No acuteintracranial hemorrhage. There is no extra-axial fluid collection.Preserved rodríguez-white matter differentiation. The ventricles are normal insize. The basal cisterns appear normal. The orbital contents appearnormal. Mucous retention cysts involving the inferior portions of themaxillary sinuses bilaterally. Mastoid air cells are well aerated. Noacute fracture CT maxillofacial bones: Orbital roof and floor intact bilaterally. Laminapapyracea are intact. The zygomas are intact. TMJs are well aligned. Themandible is intact. Nasal bones and nasal septum are intact. Multipledental caries, periodontal lucencies and periapical lucencies indicatingthe presence of dental and periodontal disease. There is a fractured leftfirst maxillary molar tooth (best seen on series [address] cervical spine: The cervical vertebral bodies and facets are wellaligned. The cervical vertebral body heights are preserved. There isintervertebral disc height loss at C5-6 with endplate degenerative changeat this level. No acute fracture nor destructive process of the visualizedosseous structures. No abnormal prevertebral or paraspinal soft tissueswelling. IMPRESSION: 1. No CT evidence of an acute intracranial abnormality. 2. No maxillofacial bone fracture. 3. No cervical spine fracture. 4. Multiple dental caries, periodontal lucencies and periapical lucenciesindicating the presence of dental and periodontal disease. There is afractured left first maxillary molar tooth. Ordered By: RAINE MARKHAM Interpreted By: Corey Maldonado MD, 10/27/2024 11:31 AM Raine Markham MD CT Final Result * CT CERV SPINE WO CON (10/27/2024 11:21 AM CDT) Anatomical Region Laterality Modality Spine Computed Tomogra phy 10/27/2024 11:3 1 AM CDT Impressions 10/27/2024 11:34 AM CDT IMPRESSION: 1. No CT evidence of an acute intracranial abnormality. 2. No maxillofacial bone fracture. 3. No cervical spine fracture. 4. Multiple dental caries, periodontal lucencies and periapical lucencies indicating the presence of dental and periodontal disease. There is a fractured left first maxillary molar tooth. Ordered By: RAINE MARKHAM Interpreted By: Corey Maldonado MD, 10/27/2024 11:31 AM Narrative 10/27/2024 11:34 AM CDT [facility] [address] [place] [address] Examination: CT HEAD WO CON, CT CERV SPINE WO CON, CT FACIAL BONES WO CON, 10/27/2024 11:18 AM. Technique: Computed tomographic images of the head, maxillofacial bones and cervical spine were obtained without intravenous contrast. Additional coronal and sagittal reformatted images were generated at a separate workstation. A dose lowering technique was used for this procedure, which may include, but is not limited to, dose reduction technique, automated exposure control, the use of iterative reconstruction, and ALARA (As Low As Reasonably Achievable) / Image Gently techniques. Clinical history: head injury Comparison: None available Findings: CT head: Focal soft tissue thickening [...] floor intact bilaterally. Lamina papyracea are intact. The zygomas are intact. TMJs are well aligned. The mandible is intact. Nasal bones and nasal septum are intact. Multiple dental caries, periodontal lucencies and periapical [...] abnormal prevertebral or paraspinal soft tissue swelling. Procedure Note Corey Maldonado MD - 10/27/2024 [place] [id number] [facility] [place] [address] Examination: CT HEAD WO CON, CT CERV SPINE WO CON, CT FACIAL BONES WO CON,10/27/2024 11:18 AM. Technique: Computed tomographic images of the head, maxillofacial bonesand cervical spine were obtained without intravenous contrast. Additionalcoronal and sagittal reformatted images were generated at a separateworkstation. A dose lowering technique was used for this procedure, whichmay include, but is not limited to, dose reduction technique, automatedexposure control, the use of iterative reconstruction, and ALARA (As LowAs Reasonably Achievable) / Image Gently techniques. Clinical history: head injury Comparison: None available Findings: CT head: Focal soft tissue thickening involving the right parietal scalpas evidence for a hematoma. No subjacent skull fracture. No acuteintracranial hemorrhage. There is no extra-axial fluid collection.Preserved rodríguez-white matter differentiation. The ventricles are normal insize. The basal cisterns appear normal. The orbital contents appearnormal. Mucous retention cysts involving the inferior portions of themaxillary sinuses bilaterally. Mastoid air cells are well aerated. Noacute fracture CT maxillofacial bones: Orbital roof and floor intact bilaterally. Laminapapyracea are intact. The zygomas are intact. TMJs are well aligned. Themandible is intact. Nasal bones and nasal septum are intact. Multipledental caries, periodontal lucencies and periapical lucencies indicatingthe presence of dental and periodontal disease. There is a fractured leftfirst maxillary molar tooth (best seen on series [address] cervical spine: The cervical vertebral bodies and facets are wellaligned. The cervical vertebral body heights are preserved. There isintervertebral disc height loss at C5-6 with endplate degenerative changeat this level. No acute fracture nor destructive process of the visualizedosseous structures. No abnormal prevertebral or paraspinal soft tissueswelling. IMPRESSION: 1. No CT evidence of an acute intracranial abnormality. 2. No maxillofacial bone fracture. 3. No cervical spine fracture. 4. Multiple dental caries, periodontal lucencies and periapical lucenciesindicating the presence of dental and periodontal disease. There is afractured left first maxillary molar tooth. Ordered By: RAINE MARKHAM Interpreted By: Corey Maldonado MD, 10/27/2024 11:31 AM Raine Markham MD CT Final Result * (ABNORMAL) LIPID PANEL (10/23/2023 10:48 AM CDT) CHOLESTEROL 211(H) <200.0 MG/DL 10/23/2023 11:13 AM CDT [facility] TRIGLYCERIDES 344(H) <150 MG/DL 10/23/2023 11:13 AM CDT [facility] HDL 41 >40.0 MG/DL 10/23/2023 11:13 AM CDT [facility] LDL (CALCULATED) 101(H) <100 MG/DL 10/23/2023 11:13 AM CDT [facility] NON HDL CHOLESTEROL 170(H) <130 MG/DL 10/23/2023 11:13 AM [facility] CHOL/HDL RATIO 5.1(H) 0.0 - 4.5 10/23/2023 11:13 AM T [facility] VLDL CALCULATION 69(H) 5 - 55 MG/DL 10/23/2023 11:13 AM T [facility] LIPID INTERPRETATION 10/23/2023 11:13 AM T [facility] Comment: NIH CONCENSUS REPORT RECOMMENDATIONS: ADULT CHILD LOW RISK: CHOLESTEROL <200 <170 TRIGLYCERIDE <150 --- HDL >=60 --- LDL <100 <110 BORDERLINE: CHOLESTEROL 200-239 170-199 TRIGLYCERIDE 150-199 --- HDL 40-59 --- LDL 100-159 110-129 HIGH RISK: CHOLESTEROL >=240 >=200 TRIGLYCERIDE >=200 --- HDL <40 --- LDL >=160 >=130 10/23/2023 10:4 8 AM CDT Jimbo Idalia Short MAINSTREAMING FACILITATOR LABORATORY Final Result [facility] [address] [place] [address], [place] [phone] from Last 3 Months or Most Recently Relevant to Health Maintenance Insurance [facility] MEDICARE SOLUTIONS Advance Directives * Full Code (Latest Code Status on File) Date Activated Date Inactivated Comments 12/07/2021 12:00 PM 12/08/2021 1:38 PM * DNR Date Activated Date Inactivated Comments 12/07/2021 5:24 AM 12/07/2021 12:00 PM * Full Code Date Activated Date Inactivated Comments 12/07/2021 4:45 AM 12/07/2021 5:24 AM Care Teams Billboard Erector Relationship Specialty Start Date End Date Hien Faustin MD [address] [place], [place] [id number] PCP - General FAMILY PRACTICE 12/07/21
--- OUTSIDE RECORDS SUMMARY | 2024-10-29 12:48 | XMS_ITS | Encounter Summary ---
Author Organization [facility] Healthcare Address [address] [place] [address] Care Team Providers Care Bus Cleaner Name Role Phone Hien Faustin MD Primary Care Provider [phone] Danna Kim MD Unavailable [phone] Encounter Details Date Type Department Care Team (Latest Contact Info) Description 10/27/2024 Ophth Exam Ophthalmology Anusha Castaneda MD [address] [facility] [address] [facility] [address] [place], [place] [id number] Social History Tobacco Use Types Packs/Day Years Used Date Smoking Tobacco: Never Smokeless Tobacco: Never [facility] Utilities Answer Date Recorded In the past 12 months has [employer] electric, gas, oil, or water company threatened [...] often do you attend chur ch or druze services? 1 to 4 times per year 10/24/2023 Do you belong to any clubs o r organizations such as jainism groups, unions, fraternal or athletic groups, or [...] any time in the past 12 m [facility], were you homeless or living in a intermediate (including now)? No 10/24/2023 Personal Safety Answer Date Recorded Have you ever been in or are you currently in a harmful physical or emotional relationship or is someone making you feel afraid or unsafe? 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 Gender Identity Not on file Sexual Orientation Not on file documented as of this encounter Plan of Treatment Not on file documented as of this encounter Visit Diagnoses Not on filedocumented in this encounter Eye Exam Visual Acuity (Snellen - Linear) Right eye Left eye Near cc 20/20 20/20 Tonometry (Tonopen, 4:47 PM) Right eye Left eye Pressure 34,35,30 46,50,48 Pupils Dark Light Shape React APD Right eye 6 4 Round Brisk None Left eye 7 6.5 Round Brisk None Visual Blanco Right eye Left eye Restrictions Partial outer superior temporal, superior nasal deficiencies Extraocular Movement Right eye Left eye Full Full Dilation Both eyes: 1% Tropicamide, 2 .5% Phenylephrine @ 4:51 PM Slit Lamp Exam Right eye Left eye Lids/Lashes Normal ecchymosis, lid edema, small superficial abrasion of medial lower lid Conjunctiva/Sclera White and quiet temporal and nasal SG Cornea Clear Clear Anterior Chamber Deep and quiet Deep, 3+ cell a nd flare Iris Round and reactive Round, minima lly reactive, atrophy Lens Clear Clear Anterior Vitreous Moreira ring Normal Fundus Exam Right eye Left eye Disc cupped cupped C/D Ratio 0.7 0.7 Macula Normal Normal Vessels Normal Normal Periphery Normal Normal Care Teams Bus Cleaner Relationship Specialty Start Date End Date Hien Faustin MD PCP - General Family Medicine 11/22/21 Danna Kim MD Family Practice 11/22/21 documented as of this encounter
--- OUTSIDE RECORDS SUMMARY | 2024-10-29 12:48 | XMS_ITS | Clinical Summary ---
Author Organization [facility] Address [address] [facility] [address] [place] [address] Phone Care Team Providers Care Tub Mender Name Role Phone Adrian Johnston MD Primary Care Provider [phone] Medications polyethylene glycol (MIRALAX) Powder Use entire 255g bottle with 64oz of clear liquid as directed for colonoscopy prep. 255 g 0 7 Active Additional Information Patient not taking.Reported on 04/09/2017 fenofibrate 160 MG Tablet Take 160 mg by mouth daily. Active indapamide (LOZOL) 2.5 MG Tablet Take 2.5 mg by mouth every morning. Active quinapril (ACCUPRIL) 40 MG Tablet Take 80 mg by mouth 2 times daily. Active simvastatin (ZOCOR) 10 MG Tablet Take 10 mg by mouth every evening. Active aspirin EC 81 MG Tablet Delayed Response Take 81 mg by mouth daily. Active polyethylene glycol (MIRALAX) Powder Use entire bottle of 255 grams of miralax for Colon prep as directed by office. 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 Not on file Not on file Not on file Last Filed Vital Signs Vital Sign Reading Time Taken Comments Blood Pressure 132/88 04/09/2017 8:35 AM RACE CAR DRIVER Pulse 78 04/09/2017 8:35 AM RACE CAR DRIVER Temperature 36.4 C (97.5 F) 04/09/2017 8:35 AM RACE CAR DRIVER Respiratory Rate 18 04/09/2017 8:35 AM RACE CAR DRIVER Oxygen Saturation 91% 04/09/2017 8:35 AM RACE CAR DRIVER Inhaled Oxygen Concentration - - Weight 106.1 kg (234 lb) 08/20/2017 1:00 PM CDT Height 182.9 cm (6') 08/20/2017 1:00 PM CDT Body Mass Index 31.74 08/20/2017 1:00 PM CDT Plan of Treatment Health Maintenance Due Date Last Done Comments TdaP Immunization 1955 Cologuard 11/24/2000 Immunochemical Fecal Occult Blood 11/24/2000 Pneumococcal Immunization (5 0+ years) (1 of 1 - PCV) 11/24/2005 Zoster Immunization (1 of 2) 11/24/2005 Colonoscopy 07/27/2017 07/27/2016 Colorectal Cancer Screening 07/27/2017 SARS-COV-2 Immunization (1 - 2023-25 season) 2023 Influenza Immunization (#1) 2024 Respiratory Syncytial Virus (RSV) Immunization (Adult) (1 - 1-dose 75+ series) 11/24/2030 Hepatitis C Virus (HCV) Screening Completed 018 Hepatitis B Immunization Aged Out No longer eligible based on patient's age to complete this topic Human Papillomavirus (HPV) Immunization Aged Out No longer eligible b ased on patient's age to complete this topic Meningococcal Immunization (ACWY) Aged Out No longer eligible based on patient's age to complete this topic Rotavirus Immunization Aged Out No lo nger eligible based on patient's age to complete this topic Procedures Procedure Name Priority Date/Time Associated Diagnosis Comments HEPATITIS PANEL ACUTE (AHP) Routine 04/09/2017 9:27 AM RACE CAR DRIVER Crohn's disease of large intestine with complication (HCC) from Last 3 Months or Most Recently Relevant to Health Maintenance Results * HEPATITIS PANEL ACUTE (AHP) (04/09/2017 9:27 AM RACE CAR DRIVER) HEPATITIS A IGM ANTIBODY NON DETECTED NON DETECTED 04/09/2017 2:18 PM RACE CAR DRIVER [facility] Comment: IGM Antibodies to HAV not detected. Does not exclude early acute or recovered HAV infection. HEP B CORE AB (IGM) NON DETECTED NON DETECTED 04/09/2017 2:18 PM RACE CAR DRIVER [facility] Comment: IGM anti-HBC not detected. Does not exclude the possibility of exposure to or infection with HBV. HEPATITIS B SURFACE ANTIGEN NON DETECTED NON DETECTED 04/09/2017 2:18 PM RACE CAR DRIVER [facility] Comment: A nonreactive test result does not exclude the possibility of exposure to or infection with Hepatitis B virus. A nonreactive test result in individuals with prior exposure to hepatitis B may be due to antigen levels below the detection limit of this assay or lack of antigen reactivity to the antibodies in this assay. hepatitis C antibody 0.16 <1 S/CO 04/09/2017 2:18 PM RACE CAR DRIVER [facility] Comment: Signal/Cutoff ratio < 0.79 is Nondetected Signal/Cutoff ratio 0.80-0.99 is Grayzone Signal/Cutoff ratio > 0.99 is Detected Supplemental assays are recommended if signal/cutoff ratio is >/=1.00. Signal/cutoff ratio result >/= 5.00 is 97% predictive of positivity for recombinant immunoblot assay (RIBA) and will be reported to the [place] Department of Public Health as required. Blood specimen (specimen) Venipuncture / Unknown 04/09/2017 9:27 AM RACE CAR DRIVER 04/09/2017 9:50 AM RACE CAR DRIVER us Yue Brito LOAN REVIEWER, ROOF SERVICE TECHNICIAN HEMATOLOGY ORDERA BLES Final Result [facility] [address] [place] [address], from Last 3 Months or Most Recently Relevant to Health Maintenance Insurance [employer] [place] [id number] Care Teams Tub Mender Relationship Specialty Start Date End Date Adrian Johnston MD [address] [place], [place] [id number] PCP - General Family Medicine 07/27/16
--- OUTSIDE RECORDS SUMMARY | 2024-10-29 12:48 | XMS_ITS | Encounter Summary ---
Author Organization [facility] Healthcare Address [address] [place] [address] Care Team Providers Care Bag Machine Operator Helper Name Role Phone Hien Faustin MD Primary Care Provider [phone] Danna Kim MD Unavailable [phone] Encounter Details Date Type Department Care Team (Latest Contact Info) Description 10/27/2024 Telephone Ophthalmology Anusha Castaneda MD [address] [facility] [address] [facility] [address] [place], [place] [id number] Social History Tobacco Use Types Packs/Day Years Used Date Smoking Tobacco: Never Smokeless Tobacco: Never [facility] Utilities Answer Date Recorded In the past 12 months has [employer] electric, gas, oil, or water company threatened [...] often do you attend chur ch or moravian services? 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 Can we get them scheduled in [facility] DF[facility] and OCT RNFL/GCC in 1 week? Thank you. documented in this encounter Plan of Treatment Not on file documented as of this encounter Visit Diagnoses Not on filedocumented in this encounter Care Teams Bag Machine Operator Helper Relationship Specialty Start Date End Date Hien Faustin MD PCP - General Family Medicine 11/22/21 Danna Kim MD Family Practice 11/22/21 documented as of this encounter
--- OUTSIDE RECORDS SUMMARY | 2024-10-29 12:49 | XMS_ITS | Clinical Summary ---
Author Organization [facility] Address [address] [place] [place] [address] Care Team Providers Care Correction Officer Name Role Phone Hien Faustin MD Primary Care Provider [phone] Allergies Active Allergy Reactions Criticality Noted Date Comments Codeine Headache Low 05/17/2020 Medications quinapril HCl (QUINAPRIL ORAL) Take by mouth. Active fenofibrate nanocrystallized (TRIGLIDE) 160 mg Tablet Take 160 mg by mouth daily. Active simvastatin (ZOCOR) 20 mg tablet Take 20 mg by mouth daily with supper. Active indapamide (LOZOL) 2.5 mg tablet Take 2.5 mg by mouth daily lockstitch lining maker. Active aspirin (MARÍA ELENA) 325 mg tablet Take 325 mg by mouth daily. 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 Erythrocytosis 11/05/2018 Encounters Date Type Department Care Team Description 10/23/2024 Orders Only [facility] Oncology and Hematology - [place] [address] [place] [address] Checo Phillips MD Erythrocytosis (Primary Dx) from Last 3 Months Family History Medical History Relation Name Comments Heart Disease Father Relation Name Status Comments Father Mother Sister Alive Social History Tobacco Use Types Packs/Day Years Used Date Smoking Tobacco: Former Cigarettes 0.5 5 Smokeless Tobacco: Never Tobacco Cessation:Counseling Given: Not Answered Alcohol Use Standard Drinks/Week Comments Yes 0 (1 standard drink = 0.6 oz pur e alcohol) Sex and Gender Information Value Date Recorded Sex Assigned at Not on file Legal Sex Male 9:26 PM CDT Gender Identity Not on file Sexual Orientation Not on file Last Filed Vital Signs Vital Sign Reading Time Taken Comments Blood Pressure 171/86 10/18/2023 11:43 AM CDT Pulse 78 10/18/2023 11:40 AM CDT Temperature 36.6 C (97.8 F) 10/18/2023 11:40 AM CDT Respiratory Rate 16 10/18/2023 11:40 AM CDT Oxygen Saturation 96% 10/18/2023 11:40 AM CDT Inhaled Oxygen Concentration - - Weight 108.4 kg (239 lb) 10/18/2023 11:40 AM CDT Height 182.9 cm (6') 12/01/2021 10:05 AM CDT Body Mass Index 32.41 12/01/2021 10:05 AM CDT Plan of Treatment Upcoming Encounters Date Type Department Care Team (Late st Contact Info) Description 10/29/2024 1:00 PM CDT Office Visit [facility] Oncology and Hematology - [place] [address] [place] [address] [facility] [address] [place] [address] Checo Phillips MD [address] [facility] [address] [place] [address] Health Maintenance Due Date Last Done Comments COLORECTAL SCREENING 11/24/2000 Colorectal Cancer Screening 11/24/2000 FIT-DNA Q 3 years 11/24/2000 FIT/FOBT Q 1 year 11/24/2000 Flex Sig/CT Colonography Q 5 years 11/24/2000 PNEUMOCOCCAL VACCINE 50+ YEARS (1 of 1 - PCV) 11/25/19 06 ZOSTER VACCINE (1 of 2) 11/24/2005 DTAP/TDAP/TD VACCINES (2 - Td or Tdap) 03/19/2017 INFLUENZA VACCINE (#1) 2024 RSV VACCINE (60+ or ) (1 - 1-dose 75+ series) 11/24/2030 Insurance DUAL COMPLETE PPO [facility]NP [facility] [id number] Care Teams Correction Officer Relationship Specialty Start Date End Date Hien Faustin MD [address] [place] [address] PCP - General Family Practice 10/18/23
--- OUTSIDE RECORDS SUMMARY | 2024-10-29 12:49 | XMS_ITS | Continuity of Care Document ---
Author Name [facility] Address [address] [place] [address] Organization [facility] Care Team Providers Care Utilities Operator Name Role Phone [facility] Unavailable Unavailable Problems Problem Status Onset Date Problem Type Date of Resolution Comments Source Coronary arteriosclerosis (disorder) Active Condition Hyperlipidemia (disorder) Active Condition Hypertensive disorder, systemic arterial (disorder) Active Condition Hyperlipidemia (disorder) Diagnosis Pneumonia, unspecified organism Active Diagnosis Chest pain, unspecified Active Diagnosis Allergies, Adverse Reactions, Alerts Substance Category Reaction Severity Reaction type Status Date Reported Comments Source codeine<sup> 1</sup> Assertion Drug allergy Active headache [facility] Encounters Location Location Details Encounter Type Encounter Number Reason For Visit Attending Provider ADM Date DC Date Status Source [id number] [id number] Between Visit [id number] 02/16 09:16 :00 02/16 23:59 :59 Discharged Internal Medicine Clinic - [facility] [address] Procedures Procedure Code Date Perfomer Comments Source [facility]
[2024-10-29 13:15] LABS: Hematocrit 39.9 % (42.0-52.0); Hemoglobin 13.7 g/dL (14.0-18.0); Immature Granulocyte Percent A 0.4 % (0-0.5); Lymphocytes Absolute Auto 1.40 K/mm3 (0.9-3.2); Mean Corpuscular HGB Conc 34.3 g/dl (32-36); Mean Corpuscular Hemoglobin 29.5 pg (26-34); Mean Corpuscular Volume 86.0 fl (80-100); Nucleated Red Blood Cells Absolute Auto 0.000 K/mm3 (0.0-0.012); Nucleated Red Blood Cells Perc 0.0 % (0.0-0.2); Platelet Count Result 153 k/mm3 (150-375); Red Blood Count 4.64 M/mm3 (4.6-6.20); White Blood Count 9.2 K/mm3 (4.5-10.0)
[2024-10-29 13:18] LABS: Blood Urea Nitrogen 19 mg/dL (8-26); Carbon Dioxide 26 mmol/L (22-30); Chloride 99 mmol/L (98-109); Estimated Glomerular Filt Rate > 60; Glucose 113 mg/dL (70-105); Ionized Calcium (POC) 1.16 mmol/L (1.11-1.31); Potassium 3.6 mmol/L (3.5-4.9); Sodium 139 mmol/L (138-146)
== END 2024-10-29 12:43 | disposition home or self-care (01) ==
PROVIDERS: PCP Family Medicine; Visit Provider Internal Medicine Hematology & Oncology
DX: D75.1 Secondary polycythemia (principal)
CPT/HCPCS: 36415; 80047; 85025